=== PATIENT | female | born 1945 | race Caucasian/White ===

== ENCOUNTER → 2016-03-20 | Day surgery (SDC) | payer OTHER ==
[2016-03-12 08:27] VITALS: Ht 158.8 cm; Wt 95.5 kg
[~2016-03-20] VITALS: Ht 158.8 cm; Wt 95.5 kg
[~2016-03-20] MED LIST: ASPEC81 PO; B-CO-25 PO; BROM0.07 OPR; CALC625T13 PO; CELE100C PO; CHOL2000 PO; CLC100 PO; COQ10 PO; CYAN100020 PO; CYM/30 PO; GLC/500 PO; GLCSR25 PO; HYDR25TA4 PO; LIDOCAINE HCL 2% 2 ML VIAL (20MG/ML) ONE; LOSA1TAB PO; LYSI1TAB2 PO; MAGN250T3 PO; METO-551 PO; MIDAZOLAM HCL 1 MG/ML 2ML VIAL ONE; MISCCAP80 PO; MULT-663 PO; ONDANSETRON INJ 2 MG/ML 2 ML VIAL ONE; PANT40TA PO; PEDICHW44 PO; PRED1SUS3 OPL; PROPOFOL IV EMULSION 10 MG/ML 20 ML VIAL IV ONE; PRVC40 PO; SODIUM CHLORIDE 0.9% 500ML 500 ML IV ONE; VITA400C3 PO; VNTHFA/IN INH; ZINC1TAB PO; ZNTT/150 PO
--- NOTE | 2016-03-20 08:56 | Endo History and Physical ---
History & Physical Date of Service: Mar 20, 2016. Chief Complaint: Colon screening Referring Physician: Dr. Markel Rodrigues History of Present Illness 70 yo CF who presents for screening colonoscopy. Past Medical History Diabetes, Asthma, Gastrointestinal Disorder, Reflux, Blood Dyscrasias, High Cholesterol, Sleep Apnea, Heart Disease, Hypertension, Thyroid Disease Past Surgical History Hx Cardiac Surgery: No Hx Internal Defibrillator: No Hx Pacemaker: No Hx Abdominal Surgery: Yes (SPLEENECTOMY, GASTRIC BYPASS, ADRIANE) Hx of Implantable Prosthesis: No Hx Post-Op Nausea and Vomiting: No Hx Cancer Surgery: No Hx Thoracic Surgery: No Hx Orthopedic: Yes (RT/LEFT SHOULDER SX, RT HEEL SPUR SX) Hx Urinary Tract Surgery: No Family History None Social History Smoking Status: Former Smoker Hx Substance Use: No Hx Alcohol Use: Yes (RARELY) Allergies Coded Allergies: Latex (Verified Allergy, Severe, Hives, 03/20/16) Iodinated Contrast Media (Verified Allergy, Intermediate, RASH, 03/12/16) Ciprofloxacin (Verified Allergy, Mild, Urticaria, 03/12/16) Adhesives (Verified Adverse Reaction, Mild, RED;ITCHY SKIN, 03/12/16) Simvastatin (Verified Adverse Reaction, Unknown, Myalgia, 03/12/16) Current Medications Reported Home Medications Medications Dose Route/Sig Max Daily Dose Days Date Category Zinc (Zinc Gluconate) 50 Mg Tab 1 Tab PO QAM 03/12/16 Reported Fiber Tabs (Calcium Polycarbophil) 625 Mg Tab 1 Tab PO QAM 03/12/16 Reported Vitamin D3 (Cholecalciferol) 2,000 Unit Cap 1 Cap PO QAM 90 03/12/16 Reported Citracal Plus (Multiple Minerals W/ Vitamins) 1 Tab Tab 1 Tab PO BID 03/12/16 Reported Vitamin E 400 Iu (Vitamin E) 400 Unit Cap 400 Inter.unit PO QAM 03/12/16 Reported [Coq10] 1 Tab PO QAM 03/12/16 Reported L-Lysine (Lysine) 1,000 Mg Tab 1 Tab PO QAM 03/12/16 Reported Super B Complex Maxi (B-Complex W/ Folic Acid) 1 Tab Tab 1 Tab PO QAM 03/12/16 Reported Probiotic (Probiotic Product) 1 Cap Cap 1 Cap PO QAM 03/12/16 Reported Ventolin Hfa (Albuterol) 200 Puffs/22155 Mcg Aers 2-4 Puffs INH Q6H PRN 03/12/16 Reported Zantac (Ranitidine HCl) 150 Mg Tab 150 Mg PO QAM 03/12/16 Reported Pravastatin Sodium (Pravastatin Sod) 40 Mg Tab 1 Tab PO HS 03/12/16 Reported Protonix (Pantoprazole Sodium) 40 Mg Tab 40 Mg PO QAM 03/12/16 Reported Lopressor (Metoprolol Tartrate) 50 Mg Tab 50 Mg PO QAM 03/12/16 Reported Glucophage (Metformin Hcl) 500 Mg Tab 2 Tab PO BID 03/12/16 Reported Magnesium 250 mg (Magnesium) 1 Tab Tab 1 Tab PO QAM 03/12/16 Reported Cozaar (Losartan Potassium) 25 Mg Tab 25 Mg PO QAM 03/12/16 Reported Hctz (Hydrochlorothiazide) 25 Mg Tab 25 Mg PO QAM 03/12/16 Reported Glipizide ER (Glipizide) 2.5 Mg Tabcr 1 Tab PO QAM 03/12/16 Reported Flintstones Plus Iron (Pediatric Multiple Vitamins W/) 1 Chw Chw 1 Dose PO BID 03/12/16 Reported Cymbalta (Duloxetine HCl) 30 Mg Cap 1 Cap PO QAM 30 03/12/16 Reported Celebrex (Celecoxib) 100 Mg Cap 100 Mg PO BID 03/12/16 Reported Vitamin B12 (Cyanocobalamin) 1,000 Mcg Tab 1 Tab PO QAM 05/04/13 Reported Colace * (Docusate Sodium) 100 Mg Cap 100 Mg PO BID 04/22/10 Reported Ecotrin Or Generic * (Aspirin) 81 Mg Ectab 81 Mg PO HS 04/22/10 Reported Vital Signs Weight (Kilograms): 95.45 Height (Feet): 5 Height (Inches): 2.5 Date Time Temp Pulse Resp B/P Pulse Ox O2 Delivery O2 Flow Rate FiO2 03/20/16 07:58 36.6 52 20 166/73 97 Room Air Physical Exam General Appearance: WD/WN, no apparent distress Respiratory/Chest: Auscultation: breath sounds normal Cardiovascular: Heart Auscultation: RRR Abdomen: Bowel Sounds: normal Inspection & Palpation: soft, non-distended, no tenderness, guarding & rebound Assessment and Plan Assessment: 70 yo CF who presents for screening colonoscopy. Plan: Proceed with colonoscopy.
--- NOTE | 2016-03-20 09:23 | Discharge Instructions ---
Endoscopy Patient Instructions Date / Procedure(s) Performed Mar 20, 2016. Colonoscopy Allergy Information Coded Allergies: Latex (Verified Allergy, Severe, Hives, 03/20/16) Iodinated Contrast Media (Verified Allergy, Intermediate, RASH, 03/12/16) Ciprofloxacin (Verified Allergy, Mild, Urticaria, 03/12/16) Adhesives (Verified Adverse Reaction, Mild, RED;ITCHY SKIN, 03/12/16) Simvastatin (Verified Adverse Reaction, Unknown, Myalgia, 03/12/16) Discharge Date / Findings Mar 20, 2016. Diverticulosis Internal hemorrhoids Medication Instructions Stopped Medication(s): Patient only took her losartan and metoprolol this am. OK to resume all medications today as prescribed. Reported Home Medications Medications Dose Route/Sig Max Daily Dose Days Date Category Zinc (Zinc Gluconate) 50 Mg Tab 1 Tab PO QAM 03/12/16 Reported Fiber Tabs (Calcium Polycarbophil) 625 Mg Tab 1 Tab PO QAM 03/12/16 Reported Vitamin D3 (Cholecalciferol) 2,000 Unit Cap 1 Cap PO QAM 90 03/12/16 Reported Citracal Plus (Multiple Minerals W/ Vitamins) 1 Tab Tab 1 Tab PO BID 03/12/16 Reported Vitamin E 400 Iu (Vitamin E) 400 Unit Cap 400 Inter.unit PO QAM 03/12/16 Reported [Coq10] 1 Tab PO QAM 03/12/16 Reported L-Lysine (Lysine) 1,000 Mg Tab 1 Tab PO QAM 03/12/16 Reported Super B Complex Maxi (B-Complex W/ Folic Acid) 1 Tab Tab 1 Tab PO QAM 03/12/16 Reported Probiotic (Probiotic Product) 1 Cap Cap 1 Cap PO QAM 03/12/16 Reported Ventolin Hfa (Albuterol) 200 Puffs/94465 Mcg Aers 2-4 Puffs INH Q6H PRN 03/12/16 Reported Zantac (Ranitidine HCl) 150 Mg Tab 150 Mg PO QAM 03/12/16 Reported Pravastatin Sodium (Pravastatin Sod) 40 Mg Tab 1 Tab PO HS 03/12/16 Reported Protonix (Pantoprazole Sodium) 40 Mg Tab 40 Mg PO QAM 03/12/16 Reported Lopressor (Metoprolol Tartrate) 50 Mg Tab 50 Mg PO QAM 03/12/16 Reported Glucophage (Metformin Hcl) 500 Mg Tab 2 Tab PO BID 03/12/16 Reported Magnesium 250 mg (Magnesium) 1 Tab Tab 1 Tab PO QAM 03/12/16 Reported Cozaar (Losartan Potassium) 25 Mg Tab 25 Mg PO QAM 03/12/16 Reported Hctz (Hydrochlorothiazide) 25 Mg Tab 25 Mg PO QAM 03/12/16 Reported Glipizide ER (Glipizide) 2.5 Mg Tabcr 1 Tab PO QAM 03/12/16 Reported Flintstones Plus Iron (Pediatric Multiple Vitamins W/) 1 Chw Chw 1 Dose PO BID 03/12/16 Reported Cymbalta (Duloxetine HCl) 30 Mg Cap 1 Cap PO QAM 30 03/12/16 Reported Celebrex (Celecoxib) 100 Mg Cap 100 Mg PO BID 03/12/16 Reported Vitamin B12 (Cyanocobalamin) 1,000 Mcg Tab 1 Tab PO QAM 05/04/13 Reported Colace * (Docusate Sodium) 100 Mg Cap 100 Mg PO BID 04/22/10 Reported Ecotrin Or Generic * (Aspirin) 81 Mg Ectab 81 Mg PO HS 04/22/10 Reported Provider Instructions Activity Restrictions - No exercising or heavy lifting for 24 hours. - Do not drink alcohol the day of the procedure. - Do not drive a car or operate machinery until the day after the procedure. - Do not make any important decisions or sign important papers in 24 hours after the procedure. Following Day: - Return to full activity which may include returning to work/school. Diet Start your diet with liquids and light foods (jello, soup, juice, toast). Then eat your usual diet if not nauseated. Treatment For Common After Affects For mild abdominal pain, bloating, or excessive gas: - Rest - Eat lightly - Lie on right side Follow-Up Information Follow-up with Dr. Markel Rodriuges as scheduled Anesthesia Information What You Should Know You have had a procedure that required some medicine to reduce anxiety and discomfort. This treatment is called moderate sedation. After receiving the treatment, you may be sleepy, but you will be able to breathe on your own. The effects of the treatment may last for several hours. Follow these instructions along with Activity/Diet recommendations noted above: * Do NOT do anything where dizziness or clumsiness would be dangerous. * Rest quietly at home today, then you can be up and about tomorrow. * Have a responsible person stay with you the rest of today. * You may have had an I.V. today. If so, you may take the dressing off later today. Recommendations Call your doctor if: * Trouble breathing * Continuous vomiting for more than 24 hours * Temperature above 101 degrees * Severe abdominal pain or bloating * Pain not relieved by pain medicine ordered * There is increased drainage or redness from any incision * A large amount of rectal bleeding greater than 2-3 tablespoons. (If you had a polyp/s removed or have hemorrhoids, a small amount of blood - from the rectum is to be expected.) * You have any unanswered questions or concerns. IN THE EVENT OF A SERIOUS EMERGENCY, GO TO THE NEAREST EMERGENCY ROOM Your discharge instructions were prepared by provider Curly Louise. Patient Instructions Signature Page Clarissa Mccloud Patient (or Guardian) Signature/Date: I have read and understand the instructions given to me by my caregivers. Caregiver/RN/Doctor Signature/Date: The above-named patient and/or guardian has received patient instructions on this date. + Original Patient Signature Page (only) stays with chart. Please make copy for patient.
--- NOTE | 2016-03-20 09:35 | Anesthesiology Progress Note ---
Anesthesia Post Op Note Date & Time Mar 20, 2016 at 09:35 Vital Signs Pain Intensity: 0 Vital Signs Past 12 Hours Date Time Temp Pulse Resp B/P Pulse Ox O2 Delivery O2 Flow Rate FiO2 03/20/16 07:58 36.6 52 20 166/73 97 Room Air Notes Mental Status: alert / awake / arousable, participated in evaluation Pt Amnestic to Procedure: Yes Nausea / Vomiting: adequately controlled Pain: adequately controlled Airway Patency, RR, SpO2: stable & adequate BP & HR: stable & adequate Hydration State: stable & adequate Anesthetic Complications: no major complications apparent
[2016-03-20 09:56] VITALS: BP 153/72; PULSE 50; O2SAT 98
--- NOTE | 2016-03-20 10:02 | GI REPORT ---
Procedure Date: 03/20/2016 9:00 AM Procedure: Colonoscopy Indications: Screening for colorectal malignant neoplasm Medicines: Monitored Anesthesia Care Complications: No immediate complications. Estimated Blood Loss: Estimated blood loss: none. Procedure: Pre-Anesthesia Assessment: - Prior to the procedure, a History and Physical was performed, and patient medications and allergies were reviewed. The patient's tolerance of previous anesthesia was also reviewed. The risks and benefits of the procedure and the sedation options and risks were discussed with the patient. All questions were answered, and informed consent was obtained. Prior Anticoagulants: The patient has taken aspirin, last dose was 1 day prior to procedure. ASA Grade Assessment: III - A patient with severe systemic disease. After reviewing the risks and benefits, the patient was deemed in satisfactory condition to undergo the procedure. After I obtained informed consent, the scope was passed under direct vision. Throughout the procedure, the patient's blood pressure, pulse, and oxygen saturations were monitored continuously. The scope was introduced through the anus and advanced to the terminal ileum. The colonoscopy was performed without difficulty. The patient tolerated the procedure well. The quality of the bowel preparation was good. The terminal ileum, ileocecal valve, appendiceal orifice, and rectum were photographed. Findings: Multiple small-mouthed diverticula were found in the sigmoid colon. Non-bleeding internal hemorrhoids were found during retroflexion. The hemorrhoids were small. Impression: - Diverticulosis in the sigmoid colon. - Non-bleeding internal hemorrhoids. - No specimens collected. Recommendation: - Resume previous diet. - Continue present medications. - Repeat colonoscopy in 10 years for surveillance. - Return to primary care physician as previously scheduled. Curly Louise, DO 03/20/2016 9:30:32 AM This report has been signed electronically. Note Initiated On: 03/20/2016 9:00 AM
--- NOTE | 2016-03-20 10:02 | Anesthesiology Progress Note ---
Anesthesia Post Op Note Date & Time Mar 20, 2016 at 10:02 Vital Signs Pain Intensity: 0 Vital Signs Past 12 Hours Date Time Temp Pulse Resp B/P Pulse Ox O2 Delivery O2 Flow Rate FiO2 03/20/16 07:58 36.6 52 20 166/73 97 Room Air Notes Mental Status: alert / awake / arousable, participated in evaluation Pt Amnestic to Procedure: Yes Nausea / Vomiting: adequately controlled Pain: adequately controlled Airway Patency, RR, SpO2: stable & adequate BP & HR: stable & adequate Hydration State: stable & adequate Anesthetic Complications: no major complications apparent
== END | disposition home or self-care (01) ==
LOC: C.GI 07:29
PROVIDERS: ATTEND Internal Medicine
DX: Z12.11 Encounter for screening for malignant neoplasm of colon (principal); K57.30 Diverticulosis of large intestine without perforation or abscess without bleeding; K64.8 Other hemorrhoids; G47.33 Obstructive sleep apnea (adult) (pediatric); J45.909 Unspecified asthma, uncomplicated; I25.10 Atherosclerotic heart disease of native coronary artery without angina pectoris; E11.9 Type 2 diabetes mellitus without complications; Z68.37 Body mass index [BMI] 37.0-37.9, adult; E66.9 Obesity, unspecified; I25.2 Old myocardial infarction; I10 Essential (primary) hypertension; Z90.89 Acquired absence of other organs; Z98.84 Bariatric surgery status; Z91.040 Latex allergy status; Z90.49 Acquired absence of other specified parts of digestive tract; Z98.890 Other specified postprocedural states

== ENCOUNTER → 2016-05-13 | Day surgery (SDC) | payer OTHER ==
[2016-04-29 07:50] VITALS: Ht 157.5 cm; Wt 95.5 kg
[~2016-05-13] VITALS: Ht 157.5 cm; Wt 95.5 kg
[~2016-05-13] MED LIST changes: +500ML BSS 0.3ML EPI 1:1000PF IRRIG ONE; +ACETAMINOPHEN 325 MG TAB PO PRN; +AMVISC PLUS 0.8ML SYRINGE INT OCU ONE; +ATROPINE SULFATE 0.1 MG/ML 5ML SYR IV PRN; +AcetaZOLAMIDE 250 MG TAB PO SCH; +BETAXOLOL HCL 0.25% OP SUSP PER DROP CHARGE OPL SCH; +BRIMONIDINE TART 0.2% OP SOLN PER DROP CHARGE ONE; +BSS FLUSH ONE; +ENDOCOAT 0.85ML SYRINGE INT OCU ONE; +EpHEDrine SULFATE INJ 50 MG/ML AMP IV PRN; +EpINEphrine INJ 1MG/ML AMP 1 MG/ML AMP ONE; +FENTANYL CITRATE INJ 50 MCG/1 ML 2 ML VIAL IV PRN; +LACTATED RINGER'S 1000ML 500 ML IV SCH; +LIDOCAINE 4% OP SOLN DROP CHARGE ONE; +LIDOCAINE 4% OP SOLN DROP CHARGE OPL SCH; +LIDOCAINE HCL 1% MPF 2 ML VIAL ONE; -LIDOCAINE HCL 2% 2 ML VIAL (20MG/ML) ONE; +MIX: 4ML BSS 1ML EPI 1:1000 PF INSTIL ONE; +MOXIFLOXACIN OPH SOLN PER DROP CHARGE ONE; +MOXIFLOXACIN OPH SOLN PER DROP CHARGE OPL SCH; +OCUCOAT 1 ML SOLN IO ONE; +ONDANSETRON INJ 2 MG/ML 2 ML VIAL IV PRN; -ONDANSETRON INJ 2 MG/ML 2 ML VIAL ONE; +POVIDONE-IODINE OP SOLN 30 ML BTL ONE; +PROPARACAINE 0.5% OP SOLN PER DROP CHARGE OPL SCH; -PROPOFOL IV EMULSION 10 MG/ML 20 ML VIAL IV ONE; -SODIUM CHLORIDE 0.9% 500ML 500 ML IV ONE; +TOBRAMYCIN/DEXAMETHASONE OPH OINT PER APPLN CHARGE ONE
--- NOTE | 2016-05-13 07:46 | History & Physical Bridge - [place] ---
H&P Re-Evaluation Bridge Note: I have examined the patient, reviewed the History & Physical and in the interval since the performance of the History & Physical I have noted the following changes of clinical significance: No changes noted
[2016-05-13] MEDS: PHENYLEPHRINE HCL 2.5% OP SOLN PER DROP CHARGE OPL SCH ×2 (09:06→09:11)
[2016-05-13] MEDS: TROPICAMIDE 1% OP SOLN PER DROP CHARGE OPL SCH ×2 (09:07→09:12)
[2016-05-13] MEDS: CYCLOPENTOLATE HCL 1% OP SOLN PER DROP CHARGE OPL SCH ×2 (09:08→09:13)
--- NOTE | 2016-05-13 10:17 | Discharge Instructions-SurgCtr ---
Discharge Instructions Date of Service May 13, 2016. Visit Reason for Visit: Cataract Left Eye Discharge Discharge Diagnosis / Problem: lens implant left eye Discharge Goals Goal(s): Improve function Medications Stopped Medications Name(s): Per pt stopped taking metformin 3-12 as instructed. Activity Recommendations Activity Limitations: resume your previous activity Lifting Limitations: no more than 10 pounds Exercise/Sports Limitations: gradually increase as tolerated May Resume Sexual Activity: when tolerated Shower/Bathe: tomorrow Driving or Machine Use: resume 1 day after discharge Anesthesia . Post Anesthesia Instructions: If you have had General Anesthesia or IV Sedation: * Do not drive today. * Resume driving when surgeon permits. * Do not make important decisions or sign legal documents today. * Call surgeon for: 1. Temperature elevations greater than 101 degrees F. 2. Uncontrollable pain. 3. Excessive bleeding. 4. Persistent nausea and vomiting. 5. Medication intolerance (nausea, vomiting or rash). * For nausea and vomiting use only clear liquids such as: tea, soda, bouillon until nausea subsides, then gradually increase diet as tolerated. * If you have any concerns or questions, call your surgeon's office. If physician is unavailable and it is an emergency, call 911 or go to the nearest emergency room. . Instructions / Follow-Up Instructions / Follow-Up ACTIVITY RECOMMENDATIONS: * Light activities. * Mild irritation and blurred vision are common for the first few days. * You may walk outside, read, watch television. * Redness around the white part of the eye is common. MEDICATIONS: Resume previous medications unless instructed otherwise by your surgeon. * Take white Diamox (Acetazolamide) tablet at 1 pm today. Start all eye drops at 1 pm today: * Eye drops (today and tomorrow): Prednisone - one drop in operative eye every 3 hours while awake Tobramycin - one drop in operative eye every 3 hours while awake SPECIAL CARE INSTRUCTIONS: * Tape plastic shield over eye to sleep at night. Call your doctor at with any concerns or problems. FOLLOW UP VISIT: Follow-up with Dr Terrazas at [place] office as scheduled. Diet Recommendations Home Diet: no limitations Procedures Procedures Performed: Left Cataract Phacoemulsification With Intraocular Lens Implant Pending Studies Studies pending at discharge: no Medical Emergencies . Who to Call and When: Medical Emergencies: If at any time you feel your situation is an emergency, please call 911 immediately. . Non-Emergent Contact Non-Emergency issues call your: Dietary Aide Teacher Call Non-Emergent contact if: your pain is not controlled [phone] . . "Provider Documentation" section prepared by Isaac Terrazas.
--- NOTE | 2016-05-13 10:19 | [facility] Operative Report ---
Operative Report Date of Service May 13, 2016. Operative Report 1. PREOPERATIVE DIAGNOSIS: Senile nuclear cataract, left eye. 2. POSTOPERATIVE DIAGNOSIS: Senile nuclear cataract, left eye. 3. PROCEDURE: Phacoemulsification of left cataract with posterior chamber lens implant, type Bausch & Lomb, model iSert, power +23.0 diopters. ANESTHESIA: Local standby. SURGEON: Dr. Terrazas. COMPLICATIONS: None. OPERATING TIME: 10 minutes. 4. OPERATION AND FINDINGS: DESCRIPTION OF PROCEDURE: The left pupil was dilated. The anesthetic was administered using a topical technique. The left eye was prepped and draped. A speculum was placed. A clear corneal incision was formed. The chamber was filled with Amvisc Plus and Endocoat. Epinephrine solution was used. A paracentesis was placed. A capsulorrhexis was performed. The nucleus was hydrodissected. The lens was removed with phacoemulsification. Time was 3.15 seconds. The aspiration unit was used to remove the cortex. The capsule was filled with Amvisc Plus. The lens implant was folded and placed into the capsule. The incision was hydrated. The Amvisc was aspirated. The wound was secure. The chamber was deep. The pupil was round. Brimonidine, TobraDex ointment and Vigamox solution were placed. The speculum was removed. The patient was returned to the Recovery Room in stable condition. I attest to the content of the Intraoperative Record and any orders documented therein. Any exceptions are noted below. The scribe's documentation has been prepared in my presence, under my direction and personally reviewed by me in its entirety. I confirm that the note above accurately reflects all work, treatment, procedures, and medical decision making performed by me. I personally scribed for Isaac Terrazas M.D. ([email or web address]) on 05/13/16 at 10:19. Electronically submitted by Ninoska Carrera ([email or web address]).
[2016-05-13 10:22] VITALS: BP 139/71; PULSE 50; TEMP 36.6; O2SAT 99
--- NOTE | 2016-05-13 10:49 | Anesthesia Progress Nt - [facility] ---
Anesthesia Post Op Note Date & Time May 13, 2016 at 10:49 Vital Signs Pain Intensity: 0 Vital Signs Past 12 Hours Date Time Temp Pulse Resp B/P Pulse Ox O2 Delivery O2 Flow Rate FiO2 05/13/16 10:22 36.6 50 16 139/71 99 Room Air 05/13/16 08:55 36.6 54 18 158/74 54 Room Air Notes Mental Status: alert / awake / arousable, participated in evaluation Pt Amnestic to Procedure: Yes Nausea / Vomiting: adequately controlled Pain: adequately controlled Airway Patency, RR, SpO2: stable & adequate BP & HR: stable & adequate Hydration State: stable & adequate Anesthetic Complications: no major complications apparent
== END | disposition home or self-care (01) ==
LOC: X.SURG 08:28
PROVIDERS: ATTEND Specialist
DX: H25.12 Age-related nuclear cataract, left eye (principal); E11.9 Type 2 diabetes mellitus without complications; I10 Essential (primary) hypertension; Z91.041 Radiographic dye allergy status; Z88.1 Allergy status to other antibiotic agents

== ENCOUNTER → 2016-06-03 | Day surgery (SDC) | payer OTHER ==
[2016-05-28 13:29] VITALS: Ht 157.5 cm; Wt 95.5 kg
[~2016-06-03] VITALS: Ht 157.5 cm; Wt 95.5 kg
[~2016-06-03] MED LIST changes: -BETAXOLOL HCL 0.25% OP SUSP PER DROP CHARGE OPL SCH; +BETAXOLOL HCL 0.25% OP SUSP PER DROP CHARGE OPR SCH; -FENTANYL CITRATE INJ 50 MCG/1 ML 2 ML VIAL IV PRN; -LIDOCAINE 4% OP SOLN DROP CHARGE OPL SCH; +LIDOCAINE 4% OP SOLN DROP CHARGE OPR SCH; -MOXIFLOXACIN OPH SOLN PER DROP CHARGE OPL SCH; +MOXIFLOXACIN OPH SOLN PER DROP CHARGE OPR SCH; +NURSING VERBAL MED ORDER ONE; -ONDANSETRON INJ 2 MG/ML 2 ML VIAL IV PRN; -PROPARACAINE 0.5% OP SOLN PER DROP CHARGE OPL SCH; +PROPARACAINE 0.5% OP SOLN PER DROP CHARGE OPR SCH
[2016-06-03] MEDS: PHENYLEPHRINE HCL 2.5% OP SOLN PER DROP CHARGE OPR SCH ×2 (07:33→07:38)
[2016-06-03] MEDS: TROPICAMIDE 1% OP SOLN PER DROP CHARGE OPR SCH ×2 (07:34→07:39)
[2016-06-03] MEDS: CYCLOPENTOLATE HCL 1% OP SOLN PER DROP CHARGE OPR SCH ×2 (07:35→07:40)
[2016-06-03] MEDS: MOXIFLOXACIN OPH SOLN PER DROP CHARGE OPR SCH ×2 (07:36→07:46)
--- NOTE | 2016-06-03 08:26 | Discharge Instructions-SurgCtr ---
Discharge Instructions Date of Service Jun 03, 2016. Visit Reason for Visit: Cataract Right Eye Discharge Discharge Diagnosis / Problem: lens implant right eye Discharge Goals Goal(s): Improve function Medications Stopped Medications Name(s): METFORMIN STOPPED ON WEDNESDAY ASA 81MG- LAST DOSE YESTERDAY Activity Recommendations Activity Limitations: resume your previous activity Lifting Limitations: no more than 10 pounds Exercise/Sports Limitations: gradually increase as tolerated May Resume Sexual Activity: when tolerated Shower/Bathe: tomorrow Driving or Machine Use: resume 1 day after discharge Anesthesia . Post Anesthesia Instructions: If you have had General Anesthesia or IV Sedation: * Do not drive today. * Resume driving when surgeon permits. * Do not make important decisions or sign legal documents today. * Call surgeon for: 1. Temperature elevations greater than 101 degrees F. 2. Uncontrollable pain. 3. Excessive bleeding. 4. Persistent nausea and vomiting. 5. Medication intolerance (nausea, vomiting or rash). * For nausea and vomiting use only clear liquids such as: tea, soda, bouillon until nausea subsides, then gradually increase diet as tolerated. * If you have any concerns or questions, call your surgeon's office. If physician is unavailable and it is an emergency, call 911 or go to the nearest emergency room. . Instructions / Follow-Up Instructions / Follow-Up ACTIVITY RECOMMENDATIONS: * Light activities. * Mild irritation and blurred vision are common for the first few days. * You may walk outside, read, watch television. * Redness around the white part of the eye is common. MEDICATIONS: Resume previous medications unless instructed otherwise by your surgeon. * Take white Diamox (Acetazolamide) tablet at 1 pm today. Start all eye drops at 1 pm today: * Eye drops (today and tomorrow): Prednisone - one drop in operative eye every 3 hours while awake Tobramycin - one drop in operative eye every 3 hours while awake SPECIAL CARE INSTRUCTIONS: * Tape plastic shield over eye to sleep at night. Call your doctor at with any concerns or problems. FOLLOW UP VISIT: Follow-up with Dr Terrazas at [place] office as scheduled. Diet Recommendations Home Diet: no limitations Procedures Procedures Performed: cataract extraction with lens implant Pending Studies Studies pending at discharge: no Medical Emergencies . Who to Call and When: Medical Emergencies: If at any time you feel your situation is an emergency, please call 911 immediately. . Non-Emergent Contact Non-Emergency issues call your: House Worker Call Non-Emergent contact if: your pain is not controlled [phone] . . "Provider Documentation" section prepared by Isaac Terrazas.
--- NOTE | 2016-06-03 08:27 | [facility] Operative Report ---
Operative Report Date of Service Jun 03, 2016. Operative Report 1. PREOPERATIVE DIAGNOSIS: Senile nuclear cataract, right eye. 2. POSTOPERATIVE DIAGNOSIS: Senile nuclear cataract, right eye. 3. PROCEDURE: Phacoemulsification of right cataract with posterior chamber lens implant, type Bausch & Lomb, model MX60, power +24 diopters. ANESTHESIA: Local standby. SURGEON: Dr. Terrazas. COMPLICATIONS: None. OPERATING TIME: 10 minutes. 4. OPERATION AND FINDINGS: DESCRIPTION OF PROCEDURE: The right pupil was dilated. The anesthetic was administered using a topical technique. The right eye was prepped and draped. A speculum was placed. A clear corneal incision was formed. The chamber was filled with Amvisc Plus and Endocoat. Epinephrine solution was used. A paracentesis was placed. A capsulorrhexis was performed. The nucleus was hydrodissected. The lens was removed with phacoemulsification. Time was 3.53 seconds. The aspiration unit was used to remove the cortex. The capsule was filled with Amvisc Plus. The lens implant was folded and placed into the capsule. The incision was hydrated. The Amvisc was aspirated. The wound was secure. The chamber was deep. The pupil was round. Brimonidine, TobraDex ointment and Vigamox solution were placed. The speculum was removed. The patient was returned to the Recovery Room in stable condition. I attest to the content of the Intraoperative Record and any orders documented therein. Any exceptions are noted below. The scribe's documentation has been prepared in my presence, under my direction and personally reviewed by me in its entirety. I confirm that the note above accurately reflects all work, treatment, procedures, and medical decision making performed by me. I personally scribed for Isaac Terrazas M.D. ([email or web address]) on 06/03/16 at 08:27. Electronically submitted by Ninoska Carrera ([email or web address]).
[2016-06-03 08:31] VITALS: TEMP 36.6
[2016-06-03 08:53] VITALS: BP 140/59; PULSE 49; O2SAT 99
--- NOTE | 2016-06-03 09:03 | Anesthesia Progress Nt - [facility] ---
Anesthesia Post Op Note Date & Time Jun 03, 2016 at 09:02 Vital Signs Pain Intensity: 0 Vital Signs Past 12 Hours Date Time Temp Pulse Resp B/P Pulse Ox O2 Delivery O2 Flow Rate FiO2 06/03/16 08:53 49 16 140/59 99 Room Air 06/03/16 08:31 36.6 50 16 154/72 98 Room Air 06/03/16 07:22 36.7 53 22 141/83 98 Room Air Notes Mental Status: alert / awake / arousable, participated in evaluation Pt Amnestic to Procedure: Yes Nausea / Vomiting: adequately controlled Pain: adequately controlled Airway Patency, RR, SpO2: stable & adequate BP & HR: stable & adequate Hydration State: stable & adequate Anesthetic Complications: no major complications apparent
== END | disposition home or self-care (01) ==
LOC: X.SURG 07:07
PROVIDERS: ATTEND Specialist
DX: H25.11 Age-related nuclear cataract, right eye (principal); I10 Essential (primary) hypertension; Z88.1 Allergy status to other antibiotic agents; Z88.5 Allergy status to narcotic agent; Z88.8 Allergy status to other drugs, medicaments and biological substances; Z91.041 Radiographic dye allergy status

== ENCOUNTER → 2016-06-15 | Outpatient (CLI) | payer OTHER ==
[~2016-06-15] MED LIST changes: -500ML BSS 0.3ML EPI 1:1000PF IRRIG ONE; -ACETAMINOPHEN 325 MG TAB PO PRN; -AMVISC PLUS 0.8ML SYRINGE INT OCU ONE; -ATROPINE SULFATE 0.1 MG/ML 5ML SYR IV PRN; -AcetaZOLAMIDE 250 MG TAB PO SCH; -BETAXOLOL HCL 0.25% OP SUSP PER DROP CHARGE OPR SCH; -BRIMONIDINE TART 0.2% OP SOLN PER DROP CHARGE ONE; -BSS FLUSH ONE; -ENDOCOAT 0.85ML SYRINGE INT OCU ONE; -EpHEDrine SULFATE INJ 50 MG/ML AMP IV PRN; -EpINEphrine INJ 1MG/ML AMP 1 MG/ML AMP ONE; -LACTATED RINGER'S 1000ML 500 ML IV SCH; -LIDOCAINE 4% OP SOLN DROP CHARGE ONE; -LIDOCAINE 4% OP SOLN DROP CHARGE OPR SCH; -LIDOCAINE HCL 1% MPF 2 ML VIAL ONE; -MIDAZOLAM HCL 1 MG/ML 2ML VIAL ONE; -MIX: 4ML BSS 1ML EPI 1:1000 PF INSTIL ONE; -MOXIFLOXACIN OPH SOLN PER DROP CHARGE ONE; -MOXIFLOXACIN OPH SOLN PER DROP CHARGE OPR SCH; -NURSING VERBAL MED ORDER ONE; -OCUCOAT 1 ML SOLN IO ONE; -POVIDONE-IODINE OP SOLN 30 ML BTL ONE; -PROPARACAINE 0.5% OP SOLN PER DROP CHARGE OPR SCH; -TOBRAMYCIN/DEXAMETHASONE OPH OINT PER APPLN CHARGE ONE
[2016-06-15 12:29] LABS: BASO % 0.4 %; BASO ABS # 0.04 K/uL (0-0.2); COMPLETE YES; EOS % 2.3 %; HEMATOCRIT 38.4 % (37-47); IG% 0.3 %; LYMPH % 42.3 %; LYMPH ABS # 4.34 K/uL (1.2-3.4); MEAN CELL VOLUME 92.1 fL (80-100); MEAN CORPUSCULAR HGB CONC 32.6 g/dl (32-36); MEAN PLATELET VOLUME 10.1 fL (7.4-10.4); NEUT % 45.7 %; PLATELET COUNT 336 K/uL (130-400); RED BLOOD COUNT 4.17 M/uL (4.2-5.4); WHITE BLOOD COUNT 10.27 K/uL (4.8-10.8)
[2016-06-15 13:26] LABS: ESTIMATED AVERAGE GLUCOSE 140 mg/dl; HA1C FLAG Normal (Normal)
[2016-06-15 14:48] LABS: ALT/SGPT 25 U/L (12-78); AST/SGOT 20 U/L (15-37); BLOOD UREA NITROGEN 14 mg/dl (7-18); CALCIUM 8.8 mg/dl (8.5-10.1); CARBON DIOXIDE 27 mmol/L (21-32); CHLORIDE 100 mmol/L (98-107); CREATININE 0.69 mg/dl (0.60-1.20); GLUCOSE 136 mg/dl (70-99); SODIUM 136 mmol/L (136-145)
[2016-06-15 14:50] LABS: ALKALINE PHOSPHATASE 59 U/L (45-117)
[2016-06-16 14:32] LABS: HSV TYPE 1 DNA Not Detected (Not Detected); HSV TYPE 1&2 DNA SOURCE Whole Blood; HSV TYPE 2 DNA Not Detected (Not Detected)
== END | disposition home or self-care (01) ==
LOC: C.LABBFT 08:12
PROVIDERS: ATTEND Internal Medicine
DX: L98.499 Non-pressure chronic ulcer of skin of other sites with unspecified severity (principal); C85.80 Other specified types of non-Hodgkin lymphoma, unspecified site; E11.49 Type 2 diabetes mellitus with other diabetic neurological complication

== ENCOUNTER → 2016-07-21 | Outpatient (CLI) | payer OTHER ==
--- NOTE | 2016-07-21 15:22 | MAMMOGRAPHY REPORT ---
BILATERAL DIGITAL SCREENING MAMMOGRAM WITH CAD: 07/21/2016 CLINICAL HISTORY: Routine screening. Patient has no complaints. TECHNIQUE: Bilateral CC and MLO views were obtained. Current study was also evaluated with a Compu ter Aided Detection (CAD) system. COMPARISON: Comparison is made to exams dated: 07/19/2015 mammogram, 07/17/2014 mammogram, 07/13/2013 mammogram, 07/11/2012 mammogram, 07/09/2011 mammogram, and 11/08/2009 mammogram - [facility]. BREAST COMPOSITION: There are scattered areas of fibroglandular density in both breasts. FINDINGS: A focal asymmetry in the anterior 9:00 right breast appears stable on all available prior mammograms dating back to at least 11/07/2007, therefore likely benign. There are a few scattered b enign-appearing microcalcifications in the breasts. No suspicious mass, architectural distortion or cluster of suspicious microcalcifications is seen. IMPRESSION: ACR BI-RADS CATEGORY 1: NEGATIVE There is no mammographic evidence of malignancy. A 1 year screening mammogram is recommended. The p atient will receive written notification of the results. Approximately 10% of breast cancers are not detected with mammography. A negative mammographic repor t should not delay biopsy if a clinically suggestive mass is present. Soraida Thorpe M.D. ay/:07/21/2016 15:04:09 Knockup Worker: Marlin ALCALA(R)(M), [facility] letter sent: Normal 1/2 BI-RADS Code: ACR BI-RADS Category 1: Negative
== END | disposition home or self-care (01) ==
LOC: C.MAMM 09:02
PROVIDERS: ATTEND Internal Medicine
DX: Z12.31 Encounter for screening mammogram for malignant neoplasm of breast (principal)

== ENCOUNTER → 2016-12-21 | Outpatient (CLI) | payer OTHER ==
[2016-12-21 09:42] LABS: BASO % 0.3 %; BASO ABS # 0.03 K/uL (0-0.2); COMPLETE YES; EOS % 1.9 %; HEMATOCRIT 39.4 % (37-47); IG% 0.2 %; LYMPH % 34.4 %; LYMPH ABS # 3.84 K/uL (1.2-3.4); MEAN CELL VOLUME 89.5 fL (80-100); MEAN CORPUSCULAR HEMOGLOBIN 31.6 pg (25-34); MEAN CORPUSCULAR HGB CONC 35.3 g/dl (32-36); MEAN PLATELET VOLUME 9.9 fL (7.4-10.4); NEUT % 54.2 %; PLATELET COUNT 287 K/uL (130-400); WHITE BLOOD COUNT 11.16 K/uL (4.8-10.8)
[2016-12-21 10:11] LABS: ESTIMATED AVERAGE GLUCOSE 137 mg/dl; HA1C FLAG Normal (Normal)
[2016-12-21 10:16] LABS: BLOOD UREA NITROGEN 10 mg/dl (7-18); BUN/CREATININE RATIO 15.2 (10-20); CALCIUM 9.2 mg/dl (8.5-10.1); CARBON DIOXIDE 29 mmol/L (21-32); CHLORIDE 97 mmol/L (98-107); CREATININE 0.68 mg/dl (0.60-1.20); GLUCOSE 109 mg/dl (70-99); POTASSIUM 4.9 mmol/L (3.5-5.1); SODIUM 134 mmol/L (136-145)
[2016-12-21 10:27] LABS: ALKALINE PHOSPHATASE 72 U/L (45-117); ALT/SGPT 27 U/L (12-78); AST/SGOT 22 U/L (15-37); CHOLESTEROL 164 mg/dl (0-200); CHOLESTEROL/HDL RATIO 3.3; HDL CHOLESTEROL 49 mg/dl; LDL CHOLESTEROL CALCULATED 81 mg/dl; THYROID STIMULATING HORMONE 0.877 uIu/ml (0.300-4.500); TRIGLYCERIDES 169 mg/dl (0-150); VERY LOW DENSITY LIPOPROT CALC 34 mg/dl
== END | disposition home or self-care (01) ==
LOC: C.LAB 08:17
PROVIDERS: ATTEND Internal Medicine
DX: E11.49 Type 2 diabetes mellitus with other diabetic neurological complication (principal); M85.80 Other specified disorders of bone density and structure, unspecified site; E78.00 Pure hypercholesterolemia, unspecified; E53.8 Deficiency of other specified B group vitamins

== ENCOUNTER → 2016-12-21 | Outpatient (CLI) | payer OTHER | END | disposition home or self-care (01) | LOC: C.LAB 08:25 → EDSTATUS 12-22 12:55 ==

== ENCOUNTER → 2017-06-29 | Outpatient (CLI) | payer OTHER ==
[~2017-06-29] MED LIST changes: +RANI150T85 PO; -ZNTT/150 PO
[2017-06-29 12:08] LABS: BASO % 0.4 %; BASO ABS # 0.04 K/uL (0-0.2); EOS % 3.4 %; EOS ABS # 0.35 K/uL (0-0.5); HEMOGLOBIN 12.7 g/dL (12.0-16.0); IG# 0.02 K/uL (0.00-0.02); LYMPH % 39.1 %; LYMPH ABS # 4.01 K/uL (1.2-3.4); MEAN CELL VOLUME 89.8 fL (80-100); MEAN CORPUSCULAR HEMOGLOBIN 30.8 pg (25-34); MEAN CORPUSCULAR HGB CONC 34.3 g/dl (32-36); MEAN PLATELET VOLUME 9.9 fL (7.4-10.4); MONO % 9.6 %; MONO ABS # 0.98 K/uL (0.11-0.59); NEUT % 47.3 %; NEUT ABS # 4.85 K/uL (1.4-6.5); PLATELET COUNT 346 K/uL (130-400); RED CELL DISTRIBUTION WIDTH CV 14.3 % (11.5-14.5); RED CELL DISTRIBUTION WIDTH SD 47.2 fL (36.4-46.3); WHITE BLOOD COUNT 10.25 K/uL (4.8-10.8)
[2017-06-29 12:34] LABS: HEMOGLOBIN A1C 6.9 % (4.5-5.6)
[2017-06-29 12:44] LABS: BLOOD UREA NITROGEN 10 mg/dl (7-18); CALCIUM 9.4 mg/dl (8.5-10.1); CARBON DIOXIDE 29 mmol/L (21-32); CREATININE 0.88 mg/dl (0.60-1.20); GLUCOSE 168 mg/dl (70-99); POTASSIUM 4.7 mmol/L (3.5-5.1); SODIUM 132 mmol/L (136-145)
[2017-06-29 12:59] LABS: CREATININE RANDOM URINE 91.6 mg/dl
== END | disposition home or self-care (01) ==
LOC: C.LABBFT 07:49
PROVIDERS: ATTEND Internal Medicine
DX: E11.49 Type 2 diabetes mellitus with other diabetic neurological complication (principal); I10 Essential (primary) hypertension; C85.80 Other specified types of non-Hodgkin lymphoma, unspecified site; E53.8 Deficiency of other specified B group vitamins

== ENCOUNTER → 2017-07-22 | Outpatient (CLI) | payer OTHER ==
--- NOTE | 2017-07-22 14:16 | MAMMOGRAPHY REPORT ---
BILATERAL DIGITAL SCREENING MAMMOGRAM TOMOSYNTHESIS WITH CAD: 07/22/2017 CLINICAL HISTORY: Routine screening. Patient has no complaints. TECHNIQUE: Breast tomosynthesis in addition to standard 2D mammography was performed. Current study was also evaluated with a Computer Aided Detection (CAD) system. COMPARISON: Comparison is made to exams dated: 07/21/2016 mammogram, 07/19/2015 mammogram, 07/17/2014 m ammogram, 07/13/2013 mammogram, 07/11/2012 mammogram, and 07/20/2011 mammogram - [facility]. BREAST COMPOSITION: There are scattered areas of fibroglandular density in both breasts. FINDINGS: No suspicious masses, calcifications, or areas of architectural distortion are noted in ei ther breast. There has been no significant interval change compared to prior exams. Scattered bilater al benign-appearing calcifications are not significantly changed. IMPRESSION: ACR BI-RADS CATEGORY 2: BENIGN There is no mammographic evidence of malignancy. A 1 year screening mammogram is recommended. The pa tient will receive written notification of the results. Approximately 10% of breast cancers are not detected with mammography. A negative mammographic report should not delay biopsy if a clinically suggestive mass is present. Tatiana Jones M.D. /:07/22/2017 13:06:30 Computer Aided Design Technician: Natalia ARAGON)(), [facility] letter sent: Normal 1/2 BI-RADS Code: ACR BI-RADS Category 2: Benign
== END | disposition home or self-care (01) ==
LOC: C.MAMM 09:06
PROVIDERS: ATTEND Internal Medicine
DX: Z12.31 Encounter for screening mammogram for malignant neoplasm of breast (principal)

== ENCOUNTER 2024-09-28 14:30 | Inpatient (IN) ==
[2024-09-28 15:01] LABS: Hematocrit (blood only) 23.9 % (37.0-47.0); Hemoglobin 8.2 g/dl (12.0-16.0); Immature Granulocytes # (auto) 0.06 K/uL (0.01-0.20); Immature Granulocytes % (auto) 0.6 %; Mean Corpuscular Hemoglobin 30.1 pg (25.0-34.0); Mean Corpuscular Volume 87.9 fL (80.0-100.0); Platelet Count 408 K/uL (130-400); RDW Standard Deviation 46.0 fL (36.4-46.3); Red Blood Count 2.72 M/uL (4.20-5.40); White Blood Count 10.44 K/ul (4.8-10.8)
--- NOTE | 2024-09-28 15:05 | XRay Report ---
XR chest 1V not portable CLINICAL HISTORY: Chest pain, nonspecific COMPARISON STUDY: 09/17/2024 FINDINGS: Heart size and pulmonary vasculature are normal. No consolidation or pleural effusion. No p neumothorax. IMPRESSION: No acute findings. ACT 112: Negative or not required by law. Electronically signed by: Reji Diaz M.D. 09/28/2024 3:04 PM
[2024-09-28 15:25] LABS: Alanine Aminotransferase 12 U/L (7-52); Albumin Globulin Ratio 1.6 (0.9-2); Alkaline Phosphatase 62 U/L (34-104); Anion Gap 6 (3-11); Bilirubin,Total 0.3 mg/dl (0.2-1.0); Blood Urea Nitrogen 25 mg/dl (6-23); Calcium 8.5 mg/dl (8.6-10.3); Carbon Dioxide 25 mmol/L (21-32); Chloride 101 mmol/L (98-107); Globulin 2.4 gm/dl (2.5-4.0); Glucose 104 mg/dl (70-99(Fasting)); Potassium 4.7 mmol/L (3.5-5.1); Sodium 132 mmol/L (136-145); Total Protein 6.2 gm/dl (6.0-8.3)
[2024-09-28 15:33] LABS: INR 0.9 (0.9-1.1); Partial Thromboplastin Time 27 Seconds (21-31); Prothrombin Time 9.8 Seconds (9.0-12.0)
--- NOTE | 2024-09-28 16:18 | CT Scan Report ---
Clinical History: Recurrent falls Technique: Axial computed tomography images were obtained of the brain without intravenous contrast. Findings: There is diffuse cerebral atrophy, within expected limits for the patient's age. Areas of decreased attenuation are seen within the periventricular white matter, likely representing chronic small vessel ischemic disease. There is no definite sign of acute or old infarction. No intracranial hemorrhage is evident. No definite mass lesion is seen on this noncontrast examination. There is no midline shift or other form of herniation. No hydrocephalus is seen. There is a posterior scalp hematoma. No fracture is identified. There is fluid and mucosal thickening of the left maxillary sinus. The mastoid air cells appear clear. Impression: 1. Cerebral atrophy and chronic small vessel ischemic disease 2. No sign of intracranial hemorrhage 3. Posterior scalp hematoma 4. Left maxillary sinusitis Electronically signed by Gabriele Lemus 09-28-2024 4:18 PM
--- NOTE | 2024-09-28 17:14 | Emergency Department Note ---
Impression & Plan Syncope, Recurrent falls, ABLA (acute blood loss anemia), Hematoma of occipital region of scalp, Laceration of scalp ED Provider Note NAME: GT LANGLEY AGE: 79 SEX: F : 1945 ARRIVES VIA: Walk-In INFORMANT: Patient, family ED PROVIDER(S): Alex Boone DO CHIEF COMPLAINT: falls HPI: This is a 79-year-old female with the PMHx of CAD, hypertension, hyperlipidemia, DM2, scleroderma, osteoarthritis, osteopenia, Raynaud's disease and pernicious anemia presenting to [facility] for further evaluation of ongoing weakness and falls at home. Patient is accompanied by family members who provide additional history. patient was recently evaluated in the emergency department on 09/17. Patient was evaluated after fall. She had a scalp laceration was repaired with danielle. Patient states that she needs the danielle removed. She states that she has had 4 falls including a fall today. She states that she does have symptoms prior to falling. Patient states that she has tremors in the right side of her body that caused her to fall. Patient denies any seizure-like activity. Patient does report that she lose consciousness with this. Patient notes that she has had some hematochezia that she describes as mostly just on toilet paper. She denies any melena. Patient states that she feels fatigued and weak. Patient states that she intermittently has issues with vision in the left eye but states this is from a prior cataract surgery. They deny fever or chills. No cough or congestion. Denies chest pain or palpitations. No shortness of breath. They deny abdominal pain, nausea and vomiting. No urinary complaints. No recent changes in bowel movements. Patient denies recent changes in medications or OTC supplements. Patient offers no other complaints, today. ADDITIONAL HISTORY OBTAINED: Per HPI Chronic Medical/Social Conditions Affecting Care: Per HPI PAST MEDICAL HISTORY: See Below PAST SURGICAL HISTORY: See Below FAMILY HISTORY: See Below SOCIAL HISTORY: See Below HOME MEDICATIONS: See Below ALLERGIES: See Below VITALS: See Below PHYSICAL EXAMINATION: GENERAL: Sitting up in bed, alert, well appearing, well nourished, no distress, non-toxic HEAD: posterior scalp contusion with hematoma. Reinjury to superior aspect. Minimal bleeding present. [address] EYE EXAM: normal conjunctiva. EOMI. OS 5 mm OD 4 mm. Both reactive. Prior cataract surgery OS. OROPHARYNX: no exudate, no erythema, lips, buccal mucosa, and tongue normal and mucous membranes are moist NECK: supple, no nuchal rigidity, no adenopathy, non-tender LUNGS: Clear to auscultation. Normal chest wall mechanics HEART: no murmurs, regular rate, regular rhythm ABDOMEN: abdomen soft, tenderness in epigastrium, normo-active bowel sounds, no masses, no rebound or guarding. BACK: Back is symmetrical on inspection and there is no deformity, no midline tenderness, no CVA tenderness. SKIN: no rashes and no bruising UPPER EXTREMITIES: upper extremities are grossly normal. LOWER EXTREMITIES: No pitting edema. NEURO EXAM: Normal sensorium, cranial nerves II-XII grossly intact, normal speech, no gross weakness of arms, no gross weakness of legs. No drift. Finger to nose intact. Gross sensation intact. MEDICAL DECISION MAKING: Differential diagnoses includes but not limited to head injury, ICH, SDH, scalp hematoma, ACS, dysrhythmia, stroke, head injury, anemia, AAA, infectious etiology, vasovagal, situational, electrolyte derangements, dehydration, orthostasis, GI bleed, neurocognitive decline, weakness, ambulatory dysfunction In summary, this is a 79 year old female who presented with frequent falls. Differential as above. Nursing notes and pertinent past medical records reviewed. Vital signs reviewed and the patient is hypertensive but otherwise afebrile hemodynamically stable. History and presentation revealed recurrent falls and ambulatory dysfunction. Question syncopal episodes. Physical examination revealed neurovascularly intact exam. Evidence of head trauma. As a result of my initial evaluation, patient is having syncopal episodes and significant ambulatory dysfunction with frequent falls. Has had some bright red blood per rectum but history of hemorrhoids and this is minimal. Typically only on the toilet paper. Does have new head trauma on top of prior laceration/contusion fixed with danielle. Will repeat CT head today. Plan for CT of the abdomen giving epigastric tenderness and concerns for possible GI bleed. Diagnostics interpreted by me include EKG and cardiac monitoring as listed below: -Cardiac Monitoring: An order was placed for continuous cardiac monitoring. The monitor shows a rate of 60-80 with regular rhythm. -ECG: EKG independently interpreted reveals normal sinus rhythm with a right bundle branch block at a rate of [address] segment changes to suggest STEMI. Poor baseline on this EKG. Patient completed laboratory studies and imaging. Results independently interpreted by me are ABLA. She has lost approximately 3 g of hemoglobin within the last 10 days. Platelets have increased. Patient has mild hyponatremia that is not new. Minimal troponin leak at 14.8. CXR independently interpreted by me reveals no evidence of focal consolidation to suggest pna. No large pneumothorax or pleural effusion. CTH independently interpreted by me reveals no evidence of ICH. No significant hydrocephalus. No major skull fractures. CTH does not demonstrate findings to suggest an etiology of the patient's symptoms or presentation, today. I am concerned that the patient has some sort of acute blood loss anemia. Not all cell counts are downtrending. It seems to be isolated to the hemoglobin. Does report some rectal bleeding. Do feel this is likely from external hemorrhoids that the patient reports. She is having some epigastric tenderness on exam. Will dose with Protonix as well as Maalox for relief. Will check a CT abdomen/pelvis. No contrast given her significant allergy. Do feel the patient should be observed in the the hospital with telemetry and close follow-up on her hemoglobin. If she continues to have downtrending hemoglobin, the patient may benefit from further imaging and possible procedures with gastroenterology for possible GI bleed. Will keep patient on PPI twice daily. Patient unsafe to return home given ambulatory dysfunction and frequent falls. Will recommend close evaluation with telemetry. Ultimately, the decision was made to admit the patient for Frequent falls and ambulatory dysfunction with concerns for safety at home. Some concern for possible acute blood loss anemia in the setting of a GI bleed. I discussed the case with the hospitalist service via [employer] and they are agreeable to admit the patient to their services. Based on the above, including the patient's age, coexisting illnesses, labs, imaging, and exam findings the decision to treat as an inpatient. I discussed the patient with the hospitalist team who recommended admission to their services. They received the medications, treatments, interventions indicated above and their condition []. I discussed my findings with the patient and their family and they understand and agree with the treatment plan. All patient / family questions were answered to their satisfaction. Consults/Care Managements Discussions: Per [facility] ER treatment provided: See above Procedures: Verbal consent obtained for staple removal. Reviewed prior records. Patient had a posterior scalp laceration that was repaired with 8 danielle. This was on 09/17. Patient needs these removed. She has suffered repeat injuries. Has a small laceration present. This is superior aspect. Site was cleansed with saline and alcohol. 8 danielle were removed in their entirety.. Patient has again a small laceration here. I do not feel it is worth repair. The patient is agreeable to this. Bacitracin applied. Patient tolerated the procedure well. Critical Care: None The chart was completed utilizing [employer] Speech voice recognition software. Grammatical errors, random word insertions, pronoun errors, and incomplete sentences are an occasional consequence of this system due to software limitations, ambient noise, and hardware issues. Any formal questions or concerns about the content, text, or information contained within the body of this dictation should be directly addressed to the physician for clarification. Past Med/Surg History Problem List (Updated 10/02/24 @ 06:03 by Alex Boone DO) Laceration of scalp (Acute) Hematoma of occipital region of scalp (Acute) ABLA (acute blood loss anemia) (Acute) Syncope (Acute) Fainting Transient alteration of awareness Stenosis of left internal carotid artery Recurrent UTI Acquired asplenia Acute blood loss anemia Recurrent falls (Acute) Sensorineural hearing loss, bilateral Limited scleroderma Obesity Personal history of VT (myocardial infarction) CAD (coronary artery disease) VT 1998 - Per cardio, "cardiac catheterization at [facility], which revealed normal coronary anatomy, however there was a distal diagonal not visualized. 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 Nontoxic multinodular goiter Osteoarthritis, multiple sites Osteopenia Pernicious anemia Raynaud disease Sleep apnea Urge incontinence of urine Vitamin B12 deficiency Medical History Closed fracture of nasal septum Mechanical fall (trip) in parking lot (10/2021) Fracture of nasal bone with routine healing History of ITP s/p splenectomy Dysphagia History of diverticulosis Difficulty breathing With humidity (reason for inhaler per pt) Denies asthma/COPD hx Hx of sleep apnea No device Hypertension Hyperlipidemia GERD (gastroesophageal reflux disease) Myocardial Infarction 1998 Hyponatremia Nocturia Renal neoplasm Surgical History History of temporal artery biopsy (09/23/22) Left Temporal Artery Biopsy(Left) - Reji St DO, FACS History of sinus surgery History of esophagogastroduodenoscopy (EGD) History of colonoscopy History of tooth extraction History of tonsillectomy and adenoidectomy History of cardiac cath 1998 ([facility]) > no stents History of cataract surgery R/L History of splenectomy Removed age 18 (r/t bleeding issues) History of cholecystectomy History of gastric surgery [id number] (2004) Family History Mother Diabetes Coronary heart disease Hypertension Sister Lymphoma in 2021 secondary to leukemia conversion Unknown Bladder cancer Hypertension Grandmother (Maternal) Diabetes Father Unknown family medical history Denies family history of Ovarian cancer Prostate cancer Breast cancer Colorectal cancer Social History Smoking Status: Unknown if ever smoked Tobacco Type: Cigarettes Age Started Using Tobacco: 42; Age Quit Using Tobacco: 44; packs per day: 0.5; Second Hand Exposure: Yes (HX); Do You Dip or Chew Tobacco: No; Hx Alcohol Use: No Hx Substance Use: No Preferred Language: Korean Communication Ability: Effective Visual Impairment: No Limitations Hearing Ability: Normal Egg Processor Required: No Beliefs That Will Affect Care: None marital status: Current Living Situation: Alone current occupational status: retired How many Children do You have: 1 Feels Safe at Home: Yes Childhood Exposure to Second-Hand Smoke: Yes Diet: diabetic caffeine: Yes during the past year weight has: increased > 10 lbs Dental Care, Regularly: No Physical Activity Frequency: 1-2 Times per Week Seatbelt Use: always Sunscreen Use: No Assistive Devices: Other Allergies Allergies Allergy/AdvReac Type Severity Reaction Status Date / Time latex Allergy Severe Hives Verified 09/28/24 18:13 Iodinated Contrast Media Allergy Intermediate Rash Verified 09/28/24 18:13 ciprofloxacin Allergy Mild Urticaria Verified 09/28/24 18:13 canagliflozin [From Invokana] Allergy Unknown Unknown Verified 09/28/24 18:13 simvastatin AdvReac Intermediate Myalgia Verified 09/28/24 18:13 adhesive AdvReac Mild Redness, Verified 09/28/24 18:13 itchy skin Home Meds Home Medications Medication Instructions Recorded Confirmed acetaminophen 650 mg 650 mg PO BID PRN Pain 01/06/19 09/28/24 tablet,extended release cyanocobalamin (vitamin B-12) 1,000 mcg sublingual QAM 01/06/19 09/28/24 1,000 mcg sublingual tablet lysine 1,000 mg tablet 1,000 mg PO QAM 01/06/19 09/28/24 zinc gluconate 50 mg tablet 50 mg PO QAM 01/06/19 09/28/24 aspirin 81 mg tablet,delayed 81 mg PO HS 07/31/19 09/28/24 release diphenhydramine HCl 25 mg tablet 25 mg PO DAILY PRN Itching 03/24/21 09/28/24 (Benadryl Allergy) Nervive Nerve Pain Relief 1 tab PO QAM 05/07/21 09/28/24 coenzyme Q10 75 mg capsule (Ultra 75 mg PO QAM 09/15/22 09/28/24 CoQ10) pediatric multivitamin no.76 1 tab PO BID 09/16/22 09/28/24 (Flintstones Complete chewable tablet) mupirocin 2 % topical ointment 1 applic topical BID PRN DRYNESS 09/23/22 09/28/24 (Centany) polyethylene glycol 3350 17 17 g PO DAILY PRN Constipation 09/23/22 09/28/24 gram/dose oral powder (Miralax) calcium carbonate 600 mg PO DAILY 09/28/24 09/28/24 duloxetine 30 mg capsule,delayed 30 mg PO QAM 09/28/24 09/28/24 release duloxetine 60 mg capsule,delayed 60 mg PO QAM 09/28/24 09/28/24 release hydrochlorothiazide 12.5 mg tablet 12.5 mg PO QAM 09/28/24 09/28/24 magnesium 250 mg tablet 250 mg PO DAILY 09/28/24 09/28/24 Previous Rx's Medication Instructions Recorded blood-glucose meter #1 ea 08/05/18 valacyclovir 1 gram tablet See Rx Instructions PO .COMPLEX 05/21/21 #30 tabs nitroglycerin 0.4 mg sublingual 0.4 mg sublingual Q5M PRN chest 10/07/23 tablet pain #25 tabs blood sugar diagnostic (OneTouch #100 strips 10/15/23 Ultra Test strips) betamethasone dipropionate 0.05 % 1 applic topical BID PRN itching 11/18/23 topical ointment #45 grams trospium 20 mg tablet 20 mg PO BID #180 tabs 02/21/24 gabapentin 300 mg capsule 300 mg PO TID #270 caps 02/28/24 pilocarpine HCl 5 mg tablet 5 mg PO TID #270 tabs 03/02/24 (Salagen (pilocarpine)) nystatin 100,000 unit/gram topical 1 applic topical TID PRN 04/10/24 powder intertrigo #60 grams linaclotide 290 mcg capsule 290 mcg PO QAM #90 caps 06/01/24 (Linzess) alendronate 70 mg tablet (Fosamax) 70 mg PO DIRECTED #12 tabs 06/29/24 losartan 50 mg tablet 50 mg PO QAM #90 tabs 06/29/24 nifedipine 60 mg tablet,extended 60 mg PO DAILY #90 tabs 06/29/24 release metoprolol tartrate 25 mg tablet 25 mg PO DAILY #90 tabs 07/03/24 dulaglutide 1.5 mg/0.5 mL 1.5 mg (0.5 mL) subcut WEEKLY #2 mL 07/28/24 subcutaneous pen injector (Trulicity) albuterol sulfate 90 mcg/actuation 2 puff inhalation QID PRN 08/21/24 aerosol inhaler (Ventolin HFA) shortness of breath or wheezing #18 grams rosuvastatin 5 mg tablet (Crestor) 5 mg PO QPM #90 tabs 08/21/24 celecoxib 100 mg capsule (Celebrex) 100 mg PO BID #180 caps 09/25/24 metformin 500 mg tablet,extended 500 mg PO BID #360 tabs 09/25/24 release 24 hr pantoprazole 40 mg tablet,delayed 40 mg PO QAM #90 tabs 09/25/24 release (Protonix) Results & Data (ED) Vital Signs Vital Signs - 24 hr 09/28/24 14:54 09/28/24 16:19 09/28/24 16:19 Temperature 36.7 C Temperature Source Temporal Artery Scan Pulse Rate 70 Pulse Rate [Apical] 69 Respiratory Rate 22 18 Respiratory Effort / Characteristics Non-Labored Spontaneous Non-Labored Spontaneous Respiratory Depth Normal Normal Respiratory Pattern Regular Regular Blood Pressure 102/68 Blood Pressure [Right Arm] 182/79 H Blood Pressure Mean 79 Blood Pressure Mean [Right Arm] 113 Pulse Oximetry 92 99 98 Oxygen Delivery Method Room Air Room Air Room Air Sepsis Recent Fever Within 48 Hours No Sepsis New/Unexplained Change in Mental Status No Sepsis Action Taken by Nursing No Action Required 09/28/24 16:19 09/28/24 16:20 09/28/24 16:30 Temperature Temperature Source Pulse Rate 62 65 Pulse Rate [Apical] Respiratory Rate 24 Respiratory Effort / Characteristics Respiratory Depth Respiratory Pattern Blood Pressure 188/77 H Blood Pressure [Right Arm] Blood Pressure Mean 117 Blood Pressure Mean [Right Arm] Pulse Oximetry 98 99 Oxygen Delivery Method Room Air Room Air Sepsis Recent Fever Within 48 Hours Sepsis New/Unexplained Change in Mental Status Sepsis Action Taken by Nursing 09/28/24 17:00 09/28/24 17:30 Temperature Temperature Source Pulse Rate 68 68 Pulse Rate [Apical] Respiratory Rate 16 20 Respiratory Effort / Characteristics Respiratory Depth Respiratory Pattern Blood Pressure 198/85 H 135/90 Blood Pressure [Right Arm] Blood Pressure Mean 112 105 Blood Pressure Mean [Right Arm] Pulse Oximetry 100 99 Oxygen Delivery Method Room Air Room Air Sepsis Recent Fever Within 48 Hours Sepsis New/Unexplained Change in Mental Status Sepsis Action Taken by Nursing Laboratory Data 10/01/24 06:03 10/01/24 06:03 Lab Results 09/28/24 09/28/24 Range/Units 14:45 18:03 WBC 10.44 (4.8-10.8) K/ul RBC 2.72 L (4.20-5.40) M/uL Hgb 8.2 L (12.0-16.0) g/dl Hct 23.9 L (37.0-47.0) % MCV 87.9 (80.0-100.0) fL MCH 30.1 (25.0-34.0) pg MCHC 34.3 (32.0-36.0) g/dL RDW Std Deviation 46.0 (36.4-46.3) fL RDW Coeff of Charles 14.5 (11.5-14.5) % Plt Count 408 H (130-400) K/uL MPV 8.7 L (9.4-12.4) fL Immature Gran % (Auto) 0.6 % Neut % (Auto) 67.0 % Lymph % (Auto) 21.3 % [place] % (Auto) 9.1 % Eos % (Auto) 1.6 % Baso % (Auto) 0.4 % Neut # (Auto) 7.00 H (1.40-6.50) K/uL Lymph # (Auto) 2.22 (1.20-3.40) K/uL [place] # (Auto) 0.95 H (0.11-0.59) K/uL Eos # (Auto) 0.17 (0.00-0.50) K/uL Baso # (Auto) 0.04 (0.00-0.20) K/uL Immature Gran # (Auto) 0.06 (0.01-0.20) K/uL PT 9.8 (9.0-12.0) Seconds INR 0.9 (0.9-1.1) APTT 27 (21-31) Seconds PTT Ratio 1.0 Sodium 132 L (136-145) mmol/L Potassium 4.7 (3.5-5.1) mmol/L Chloride 101 (98-107) mmol/L Carbon Dioxide 25 (21-32) mmol/L Anion Gap 6 (3-11) BUN 25 H (6-23) mg/dl Creatinine 0.94 (0.6-1.2) mg/dl Est Cr Clr Drug Dosing Not Reportable eGFR 61.72 BUN/Creatinine Ratio 26.6 H (10-20) Glucose 104 H (70-99(Fasting)) mg/dl Calcium 8.5 L (8.6-10.3) mg/dl Total Bilirubin 0.3 (0.2-1.0) mg/dl AST 20 (13-39) U/L ALT 12 (7-52) U/L Alkaline Phosphatase 62 (34-104) U/L Total Creatine Kinase 73 (26-192) U/L Troponin I High Sens 14.8 H (0-14) pg/ml Total Protein 6.2 (6.0-8.3) gm/dl Albumin 3.8 (3.4-5.0) gm/dl Globulin 2.4 L (2.5-4.0) gm/dl Albumin/Globulin Ratio 1.6 (0.9-2) Urine Color Yellow Urine Appearance Cloudy A (Clear) Urine pH 8.0 H (4.5-7.5) Ur Specific [place] 1.005 (1.000-1.030) Urine Protein Trace H (Negative) Urine Glucose (UA) Negative (Negative) Urine Ketones Negative (Negative) Urine Blood 1+ H (Negative) Urine Nitrite Negative (Negative) Urine Bilirubin Negative (Negative) Urine Urobilinogen Negative (Negative) Ur Leukocyte Esterase 3+ H (Negative) Urine WBC (Auto) >50 H (0-5) /hpf Urine RBC (Auto) 3-5 H (0-2) /hpf U Hyaline Cast (Auto) 3-5 H (0-2) /lpf U Epithel Cells (Auto) 6-10 H (0-2) /hpf Urine Bacteria (Auto) 4+ H (None Seen) Hyaline Casts Present A (None Presnt) /lpf Urine Comment Administered Medications Discontinued Medications Acetaminophen (Acetaminophen 325 Mg Tab) 650 mg PO Q6H PRN PRN Reason: Pain Stop: 10/28/24 21:31 Last Admin: 10/01/24 04:34 Dose: 650 mg Documented By: Admin: 09/30/24 08:40 Dose: 650 mg Documented By: MERLY Hydrocodone Bitart/Acetaminophen (Hydrocodone/Acetamophen 5/325mg Tab) 1 tab PO Q6H PRN PRN Reason: Pain Stop: 10/15/24 11:17 Last Admin: 10/01/24 11:58 Dose: 1 tab Documented By: MERLY Al Hydrox/Mg Hydrox/Simethicone (Aluminum/Magnesium/Simeth (Maalox Max) 30 Ml Udc) 30 ml PO NOW STA Stop: 09/28/24 17:06 Last Admin: 09/28/24 17:32 Dose: 30 ml Documented By: GREGG Apixaban (Apixaban 5 Mg Tablet) 10 mg PO BID ROXANA Stop: 10/07/24 21:01 Last Admin: 10/01/24 11:58 Dose: 10 mg Documented By: MERLY Aspirin (Aspirin 81 Mg Ectab) 81 mg PO QAM ROXANA Stop: 10/29/24 11:44 Last Admin: 10/01/24 08:44 Dose: 81 mg Documented By: Admin: 09/30/24 08:36 Dose: 81 mg Documented By: Admin: 09/29/24 13:32 Dose: 81 mg Documented By: DAVID Cephalexin HCl (Cephalexin 500 Mg Cap) 500 mg PO BID [facility]; Protocol Stop: 10/05/24 20:59 Last Admin: 10/01/24 08:43 Dose: 500 mg Documented By: Admin: 09/30/24 20:36 Dose: 500 mg Documented By: ANTONIO Cyanocobalamin (Cyanocobalamin (B-12) 500 Mcg Tablet) [facility] Stop: 10/29/24 08:59 Last Admin: 10/01/24 08:43 Dose: 1,000 mcg Documented By: Admin: 09/30/24 08:36 Dose: 1,000 mcg Documented By: Admin: 09/29/24 09:07 Dose: 1,000 mcg Documented By: DAVID Diphenhydramine HCl (Diphenhydramine Capsule 25 Mg Cap) 50 mg PO ONE ONE Stop: 09/30/24 06:01 Last Admin: 09/30/24 05:36 Dose: 50 mg Documented By: ANTONIO Duloxetine HCl (Duloxetine Hcl 30 Mg Cap) [facility] Stop: 10/29/24 08:59 Last Admin: 10/01/24 08:43 Dose: 30 mg Documented By: Admin: 09/30/24 08:35 Dose: 30 mg Documented By: Admin: 09/29/24 09:06 Dose: 30 mg Documented By: DAVID Duloxetine HCl (Duloxetine Hcl 60 Mg Cap) [facility] Stop: 10/29/24 08:59 Last Admin: 10/01/24 08:44 Dose: 60 mg Documented By: Admin: 09/30/24 08:36 Dose: 60 mg Documented By: Admin: 09/29/24 09:10 Dose: 60 mg Documented By: DAVID Famotidine (Famotidine 20 Mg Tab) 20 mg PO ONE ONE Stop: 09/30/24 06:01 Last Admin: 09/30/24 05:36 Dose: 20 mg Documented By: ANTONIO Folic Acid (Folic Acid 1 Mg Tab) [facility] Stop: 10/30/24 08:59 Last Admin: 10/01/24 08:43 Dose: 1 mg Documented By: Admin: 09/30/24 09:42 Dose: 1 mg Documented By: MERLY Gabapentin (Gabapentin 300 Mg Cap) 300 mg PO TID ROXANA Stop: 10/28/24 21:18 Last Admin: 10/01/24 08:44 Dose: 300 mg Documented By: Admin: 09/30/24 20:38 Dose: 300 mg Documented By: Admin: 09/30/24 14:39 Dose: 300 mg Documented By: Admin: 09/30/24 08:36 Dose: 300 mg Documented By: Admin: 09/29/24 20:40 Dose: 300 mg Documented By: Admin: 09/29/24 13:53 Dose: 300 mg Documented By: Admin: 09/29/24 09:07 Dose: 300 mg Documented By: Admin: 09/28/24 23:19 Dose: 300 mg Documented By: ANTONIO Heparin Sodium (Porcine) (Heparin Sod (Porcine) 1000 Unit/Ml) 5,000 units IV NOW ONE Stop: 09/30/24 09:41 Last Admin: 09/30/24 09:43 Dose: 5,000 units Documented By: MERLY Co-signed By: CRAIG Heparin Sodium/Dextrose (Heparin Iv Adult Wt-Based Standard W/ Initial Bolus Protocol) 1 each IV Q15M [facility]; Protocol Stop: 09/30/24 09:46 Last Admin: 09/30/24 10:19 Dose: Not Given Documented By: Admin: 09/30/24 10:18 Dose: Not Given Documented By: MERLY Hydrocortisone (Hydrocortisone Hc 2.5% Crm 30gm Tube) 1 appln EXT BID ROXANA Stop: 10/30/24 11:14 Last Admin: 10/01/24 08:44 Dose: 1 appln Documented By: Admin: 09/30/24 20:37 Dose: 1 appln Documented By: Admin: 09/30/24 11:44 Dose: 1 appln Documented By: MERLY Pantoprazole Sodium (Protonix) 40 mg in 10 mls @ 5 mls/min IV NOW ONE Stop: 09/28/24 17:06 Last Admin: 09/28/24 17:32 Dose: 5 mls/min Documented By: GREGG Ceftriaxone Sodium (Rocephin) 2,000 mg in 50 mls @ 100 mls/hr IV NOW STA Stop: 09/28/24 20:54 Last Infusion: 09/28/24 23:55 Dose: Infused Documented By: Admin: 09/28/24 23:27 Dose: 100 mls/hr Documented By: ANTONIO Pantoprazole Sodium (Protonix) 40 mg in 10 mls @ 5 mls/min IV BID ROXANA Stop: 10/28/24 21:18 Last Admin: 09/29/24 20:38 Dose: 5 mls/min Documented By: Admin: 09/29/24 09:10 Dose: 5 mls/min Documented By: Admin: 09/28/24 23:19 Dose: 5 mls/min Documented By: ANTONIO Ceftriaxone Sodium (Rocephin) 2,000 mg in 50 mls @ 100 mls/hr IV Q24H [facility] Stop: 10/04/24 21:59 Last Infusion: 09/29/24 21:45 Dose: Infused Documented By: Admin: 09/29/24 21:16 Dose: 100 mls/hr Documented By: ANTONIO Heparin Sodium/Dextrose (Heparin 32479 Unit/500 Ml D5w) 25,000 units in 500 mls @ 21 mls/hr IV .[id number] [facility]; Protocol Stop: 10/30/24 09:14 Last Titration: 10/01/24 10:33 Dose: Infused Documented By: MERLY Co-signed By: RAJAT Admin: 10/01/24 08:52 Dose: 1,050 units/hr, 21 mls/hr Documented By: MERLY Co-signed By: RAJAT Titration: 10/01/24 08:52 Dose: Infused Documented By: MERLY Co-signed By: RAJAT Titration: 10/01/24 00:50 Dose: 1,050 units/hr, 21 mls/hr Documented By: ANTONIO Co-signed By: ISIDORO Titration: 09/30/24 17:59 Dose: 1,050 units/hr, 21 mls/hr Documented By: MERLY Co-signed By: CRAIG Admin: 09/30/24 09:43 Dose: 1,100 units/hr, 22 mls/hr Documented By: MERLY Co-signed By: CRAIG Iron Sucrose 300 mg/ Sodium (Chloride) 265 mls @ 176.667 mls/hr IV TODAY@0800 ONE Stop: 10/01/24 09:29 Last Infusion: 10/01/24 10:33 Dose: Infused Documented By: Infusion: 10/01/24 10:32 Dose: Infused Documented By: Admin: 10/01/24 08:42 Dose: 176.7 mls/hr Documented By: MERLY Prothrombin Complex Concent ( (Human) 2,000 units/ Syringe) 80 mls @ 10 mls/min IV ONE ONE; Protocol Stop: 10/01/24 14:37 Last Admin: 10/01/24 14:19 Dose: 10 mls/min Documented By: MERLY Insulin Aspart (Insulin Aspart Per Unit Charge) 0 units SC ACHS ROXANA Stop: 10/28/24 21:18 Last Admin: 10/01/24 11:44 Dose: Not Given Documented By: Admin: 10/01/24 07:59 Dose: Not Given Documented By: Admin: 09/30/24 20:38 Dose: 1 units Documented By: ANTONIO Co-signed By: NANO Admin: 09/30/24 16:38 Dose: 1 units Documented By: MERLY Co-signed By: CRAIG Admin: 09/30/24 11:40 Dose: 3 units Documented By: MERLY Co-signed By: CRAIG Admin: 09/30/24 08:19 Dose: 1 units Documented By: MERLY Co-signed By: CRAIG Admin: 09/29/24 20:42 Dose: 3 units Documented By: ANTONIO Co-signed By: ISIDORO Admin: 09/29/24 17:34 Dose: 1 units Documented By: DAVID Co-signed By: NATALIA Admin: 09/29/24 11:36 Dose: Not Given Documented By: Admin: 09/29/24 09:16 Dose: Not Given Documented By: Admin: 09/28/24 23:16 Dose: Not Given Documented By: ANTONIO Ioversol (Optiray 320 125ml) 120 ml IV ONCE ONE Stop: 09/30/24 07:16 Last Admin: 09/30/24 07:16 Dose: 120 ml Documented By: PATRICK Levetiracetam (Levetiracetam 500 Mg/5 Ml Vial) 500 mg IV ONE ONE Stop: 10/01/24 14:31 Last Admin: 10/01/24 14:37 Dose: 500 mg Documented By: MERLY Linaclotide (Linaclotide 145 Mcg Capsule) 290 mcg PO QAM ROXANA Stop: 10/29/24 08:59 Last Admin: 10/01/24 08:43 Dose: 290 mcg Documented By: Admin: 09/30/24 08:35 Dose: 290 mcg Documented By: Admin: 09/29/24 09:09 Dose: 290 mcg Documented By: DAVID Losartan Potassium (Losartan Potassium 50 Mg Tab) 50 mg PO QAM ROXANA Stop: 10/29/24 08:59 Last Admin: 10/01/24 08:44 Dose: 50 mg Documented By: Admin: 09/30/24 08:36 Dose: 50 mg Documented By: Admin: 09/29/24 09:09 Dose: 50 mg Documented By: DAVID Metoprolol Tartrate (Metoprolol Tartrate 25 Mg Tab) 25 mg PO DAILY ROXANA Stop: 10/29/24 08:59 Last Admin: 10/01/24 08:44 Dose: 25 mg Documented By: Admin: 09/30/24 08:36 Dose: 25 mg Documented By: Admin: 09/29/24 09:07 Dose: 25 mg Documented By: DAVID Nifedipine (Nifedipine Extended Rel 30 Mg Tabcr) 60 mg PO DAILY ROXANA Stop: 10/29/24 08:59 Last Admin: 10/01/24 08:43 Dose: 60 mg Documented By: Admin: 09/30/24 08:35 Dose: 60 mg Documented By: Admin: 09/29/24 09:06 Dose: 60 mg Documented By: DAVID Pantoprazole Sodium (Pantoprazole 40 Mg Tab) 40 mg PO QAM ROXANA Stop: 10/30/24 08:59 Last Admin: 10/01/24 08:43 Dose: 40 mg Documented By: Admin: 09/30/24 09:42 Dose: 40 mg Documented By: MERLY Pilocarpine HCl (Pilocarpine Hcl 5 Mg Tablet) 5 mg PO TID ROXANA Stop: 10/28/24 21:18 Last Admin: 10/01/24 08:43 Dose: 5 mg Documented By: Admin: 09/30/24 20:37 Dose: 5 mg Documented By: Admin: 09/30/24 14:39 Dose: 5 mg Documented By: Admin: 09/30/24 08:36 Dose: 5 mg Documented By: Admin: 09/29/24 20:39 Dose: 5 mg Documented By: Admin: 09/29/24 13:31 Dose: 5 mg Documented By: Admin: 09/29/24 09:09 Dose: 5 mg Documented By: Admin: 09/28/24 23:19 Dose: 5 mg Documented By: ANTONIO Polyethylene Glycol (Polyethylene (Miralax) 17 Gm Pack) 17 gm PO DAILY ROXANA Stop: 10/31/24 08:59 Last Admin: 10/01/24 08:45 Dose: 17 gm Documented By: MERLY Prednisone (Prednisone 50 Mg Tab) 50 mg PO Q8 ROXANA Stop: 09/30/24 06:01 Last Admin: 09/30/24 05:37 Dose: 50 mg Documented By: Admin: 09/29/24 21:16 Dose: 50 mg Documented By: Admin: 09/29/24 13:53 Dose: 50 mg Documented By: DAVID Rosuvastatin Calcium (Rosuvastatin Calcium 5 Mg Tab) 5 mg PO QPM ROXANA Stop: 10/28/24 21:18 Last Admin: 09/30/24 20:36 Dose: 5 mg Documented By: Admin: 09/29/24 20:39 Dose: 5 mg Documented By: Admin: 09/28/24 23:19 Dose: 5 mg Documented By: ANTONIO Sennosides (Senna 8.6 Mg Tab) 17.2 mg PO QAM ROXANA Stop: 10/31/24 08:59 Last Admin: 10/01/24 08:43 Dose: 17.2 mg Documented By: MERLY Imaging Data Radiologist's Impression: Chest X-Ray 09/28/24 14:37 XR chest 1V not portable CLINICAL HISTORY: Chest pain, nonspecific COMPARISON STUDY: 09/17/2024 FINDINGS: Heart size and pulmonary vasculature are normal. No consolidation or pleural effusion. No pneumothorax. IMPRESSION: No acute findings. ACT 112: Negative or not required by law. Electronically signed by: Reji Diza M.D. 09/28/2024 3:[address] 09/28/24 15:42 Clinical History: Recurrent falls Technique: Axial computed tomography images were obtained of the brain without intravenous contrast. Findings: There is diffuse cerebral atrophy, within expected limits for the patient's age. Areas of decreased attenuation are seen within the periventricular white matter, likely representing chronic small vessel ischemic disease. There is no definite sign of acute or old infarction. No intracranial hemorrhage is evident. No definite mass lesion is seen on this noncontrast examination. There is no midline shift or other form of herniation. No hydrocephalus is seen. There is a posterior scalp hematoma. No fracture is identified. There is fluid and mucosal thickening of the left maxillary sinus. The mastoid air cells appear clear. Impression: 1. Cerebral atrophy and chronic small vessel ischemic disease 2. No sign of intracranial hemorrhage 3. Posterior scalp hematoma 4. Left maxillary sinusitis Electronically signed by Gabriele Lemus 09-28-2024 4:18 PM Discharge Plan Visit Data Chief Complaint: Fall Stated Complaint: SUTURES REMOVED CLAMPS ED Provider: Alex Boone Discharge Problem: Syncope, Recurrent falls, ABLA (acute blood loss anemia), Hematoma of occipital region of scalp, Laceration of scalp Patient Disposition: Admitted As Inpatient Condition: Good Discharge Instructions Interventions: ED Discharge Assessment Last Done: 09/28/24 20:25
[2024-09-28] MEDS: ALUMINUM/MAGNESIUM/SIMETH (MAALOX MAX) 30 ML UDC PO STA (17:32)
[2024-09-28] MEDS: PANTOprazole 40 MG/10 ML SYR IV ONE (17:32)
--- NOTE | 2024-09-28 18:03 | CT Scan Report ---
Clinical History: Epigastric pain Technique: Axial computed tomography images were obtained of the abdomen and pelvis without intravenous contrast. Comparison is made to the prior CT dated 09/17/2024 Findings: The liver is overall of normal size, attenuation, and contour with no sign of cirrhosis or significant fatty infiltration. No definite liver mass lesion is seen on this noncontrast study. The gallbladder appears to have been removed. No bile duct dilatation is noted. The spleen is absent, with a small splenule remaining. There is a suspected small 7 mm cyst in the mid pancreatic body. The pancreas otherwise appears normal with no sign of acute or chronic pancreatitis and no mass lesion noted. The pancreatic duct is of normal caliber. The adrenal glands appear unremarkable. There is a 2 mm calculus in the mid right kidney. No left renal or proximal ureteral calculi are seen. There is no hydronephrosis or perinephric stranding. No definite renal mass lesion is identified. The aorta is of normal caliber. No abdominal adenopathy is seen. There is a small hiatal hernia. 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 There is no sign of small bowel obstruction. The colon appears unremarkable. The appendix appears normal also. No free intraperitoneal fluid or air is identified. No distal ureteral or bladder calculi are seen. No obvious bladder mass lesion is evident. The iliac arteries are of normal caliber. No pelvic adenopathy is noted. The lungs bases appear clear. There is coronary atherosclerosis Lumbar degenerative disc disease is seen. There is bilateral hip osteoarthritis. No fracture is identified. No focal osseous lesion is seen Impression: 1. Small nonobstructing right renal calculus 2. Small hiatal hernia 3. Suspected small pancreatic cyst, likely a benign congenital or post inflammatory cyst. A follow-up pancreatic protocol CT or MRI could be considered Electronically signed by Gabriele Lemus 09-28-2024 6:02 PM
--- NOTE | 2024-09-28 18:12 | History & Physical Report ---
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 Falls are preceded by a sensory disturbance of the right head/right scalp along with right arm "shakes." #suspected recurrent syncope preceding the recurrent falls - -I do believe patient loses consciousness albeit briefly which then leads to the falls -she has a well-documented history of numerous falls over the years some of which have led to significant injuries including the recent scalp laceration -I am uncertain of the specific etiology of the syncope - the prodromal right head sensory disturbance and right arm "shakes" are concerning, however -atypical seizures? -TIA events? -subclavian steal with "drop" attacks? -valvular disease? -sinus pauses or AV block? -hypoglycemia events? -other? -check MRI brain, MRA head/neck (latter especially with the b/l carotid bruits) -check echo -consider EEG -check orthostatic BPs -telemetry -certainly her acute blood loss anemia could be worsening the process #acute blood loss anemia - -Hb 11.2 on 09/17, now 8.2 -although she has seen some minor BRB with wiping, it sounds as if she had significant blood loss with her scalp laceration -with that said she also reports "dark" stools -my suspicion for acute GI bleed is low but reasonable to continue PPI IV -recheck CBC am -check full Fe panel -B12 level in April was >1500 -to be complete check a folate at some point #right scalp/head sensory disturbance with arm shaking - -see discussion above -TIA? -atypical seizure? -other? #HTN - -cont metoprolol, nifedipine, losartan -hold diuretic for now (maybe slightly volume contracted based on elevated BUN, etc) #Hyperlipidemia - -check CPK given multiple falls -if normal continue her crestor #h/o CAD - -1998 - acute VA; s/p cath, no stents or intervention needed -does not follow with cardiology -minimal trop elevation - likely demand ischemia; ACS not suspected -echo -metoprolol, statin, hold aspirin for now until acute anemia is sorted out #T2DM - -last a1c was 5.5% in April; check another while here -hold home meds including metformin -could patient be having hypoglycemia causing some of her falls #h/o CREST syndrome variant of Scleroderma - #h/o lymphoma? - -I do not see any oncology records in the chart; will have to investigate the old chart to get more details #h/o B12 deficiency - -last B12 level robust - >1500 - in April 2024 #recurrent e.coli UTIs - -just completed 3 day course of abx recently for e.coli -u/a suggestive of ongoing UTI; send culture -rocephin 2gm IV daily and narrow when able -not clearing UTIs due to kidney stone? asplenic state? other? #asplenic state - -s/p splenectomy due to prior ITP years ago -platelets are wnl #DVT proph - -hold on chemical means due to recent acute blood loss anemia, recent scalp bleeding, ?GI bleeding, etc. 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 Patient was walking through her kitchen when she developed right arm shaking, then a numbness sensation on the right side of her scalp near the right church/right ear/below the ear, followed by "just going out." The next thing she knew she was on the floor. She does not remember what happened after she developed the numbness sensation on the right side of the head. She simply woke up on the floor. Her other falls recently have been quite similar. She has the right arm shakes (never the right leg), followed by the sensory disturbance of the right head, and simply passes out. She does not have left arm or left leg or left facial symptoms. Denies focal weakness of any limb. She does have generalized weakness - especially both legs - over the last few weeks. She has had increasing fatigue in the last several weeks as well. On 09/17 she had a severe fall outside on a concrete sidewalk. She had similar symptoms prior to that fall much like today's event. She struck the back of her head and was brought to the ER for laceration repair. She lost a considerable amount of blood from that laceration. It required staple repair. On 09/18 she had a fall at her home that was witnessed by one of her friends. Apparently the patient's eyes "rolled back in her head" right before she fell to the floor. In the ER today the ER physician removed the danielle from the posterior scalp. There is slight dehiscence of the wound but it is minor. Patient denies any headaches. Denies chest pain or dyspnea associated with her events/falls. Denies vertigo. Denies visual changes. Finally, patient mentions occasional bright red blood per rectum - typically ONLY with wiping. Has h/o hemorrhoids. Allergies Allergy/AdvReac Type Severity Reaction Status Date / Time latex Allergy Severe Hives Verified 09/28/24 18:13 Iodinated Contrast Media Allergy Intermediate Rash Verified 09/28/24 18:13 ciprofloxacin Allergy Mild Urticaria Verified 09/28/24 18:13 canagliflozin [From Invokana] Allergy Unknown Unknown Verified 09/28/24 18:13 simvastatin AdvReac Intermediate Myalgia Verified 09/28/24 18:13 adhesive AdvReac Mild Redness, Verified 09/28/24 18:13 itchy skin Home Medications Medication Instructions Recorded Confirmed Type blood-glucose meter #1 ea 08/05/18 09/28/24 Rx acetaminophen 650 mg 650 mg PO BID PRN Pain 01/06/19 09/28/24 History tablet,extended release cyanocobalamin (vitamin B-12) 1,000 mcg sublingual QAM 01/06/19 09/28/24 History 1,000 mcg sublingual tablet lysine 1,000 mg tablet 1,000 mg PO QAM 01/06/19 09/28/24 History zinc gluconate 50 mg tablet 50 mg PO QAM 01/06/19 09/28/24 History aspirin 81 mg tablet,delayed 81 mg PO HS 07/31/19 09/28/24 History release diphenhydramine HCl 25 mg tablet 25 mg PO DAILY PRN Itching 03/24/21 09/28/24 History (Benadryl Allergy) Nervive Nerve Pain Relief 1 tab PO QAM 05/07/21 09/28/24 History valacyclovir 1 gram tablet See Rx Instructions PO .COMPLEX 05/21/21 09/28/24 Rx #30 tabs coenzyme Q10 75 mg capsule (Ultra 75 mg PO QAM 09/15/22 09/28/24 History CoQ10) pediatric multivitamin no.76 1 tab PO BID 09/16/22 09/28/24 History (Flintstones Complete chewable tablet) mupirocin 2 % topical ointment 1 applic topical BID PRN DRYNESS 09/23/22 09/28/24 History (Centany) polyethylene glycol 3350 17 17 g PO DAILY PRN Constipation 09/23/22 09/28/24 History gram/dose oral powder (Miralax) nitroglycerin 0.4 mg sublingual 0.4 mg sublingual Q5M PRN chest 10/07/23 09/28/24 Rx tablet pain #25 tabs blood sugar diagnostic (OneTouch #100 strips 10/15/23 09/28/24 Rx Ultra Test strips) betamethasone dipropionate 0.05 % 1 applic topical BID PRN itching 11/18/23 09/28/24 Rx topical ointment #45 grams trospium 20 mg tablet 20 mg PO BID #180 tabs 02/21/24 09/28/24 Rx gabapentin 300 mg capsule 300 mg PO TID #270 caps 02/28/24 09/28/24 Rx pilocarpine HCl 5 mg tablet 5 mg PO TID #270 tabs 03/02/24 09/28/24 Rx (Salagen (pilocarpine)) nystatin 100,000 unit/gram topical 1 applic topical TID PRN 04/10/24 09/28/24 Rx powder intertrigo #60 grams linaclotide 290 mcg capsule 290 mcg PO QAM #90 caps 06/01/24 09/28/24 Rx (Linzess) alendronate 70 mg tablet (Fosamax) 70 mg PO DIRECTED #12 tabs 06/29/24 09/28/24 Rx losartan 50 mg tablet 50 mg PO QAM #90 tabs 06/29/24 09/28/24 Rx nifedipine 60 mg tablet,extended 60 mg PO DAILY #90 tabs 06/29/24 09/28/24 Rx release metoprolol tartrate 25 mg tablet 25 mg PO DAILY #90 tabs 07/03/24 09/28/24 Rx dulaglutide 1.5 mg/0.5 mL 1.5 mg (0.5 mL) subcut WEEKLY #2 mL 07/28/24 09/28/24 Rx subcutaneous pen injector (Trulicity) albuterol sulfate 90 mcg/actuation 2 puff inhalation QID PRN 08/21/24 09/28/24 Rx aerosol inhaler (Ventolin HFA) shortness of breath or wheezing #18 grams rosuvastatin 5 mg tablet (Crestor) 5 mg PO QPM #90 tabs 08/21/24 09/28/24 Rx celecoxib 100 mg capsule (Celebrex) 100 mg PO BID #180 caps 09/25/24 09/28/24 Rx metformin 500 mg tablet,extended 500 mg PO BID #360 tabs 09/25/24 09/28/24 Rx release 24 hr pantoprazole 40 mg tablet,delayed 40 mg PO QAM #90 tabs 09/25/24 09/28/24 Rx release (Protonix) calcium carbonate 600 mg PO DAILY 09/28/24 09/28/24 History duloxetine 30 mg capsule,delayed 30 mg PO QAM 09/28/24 09/28/24 History release duloxetine 60 mg capsule,delayed 60 mg PO QAM 09/28/24 09/28/24 History release hydrochlorothiazide 12.5 mg tablet 12.5 mg PO QAM 09/28/24 09/28/24 History magnesium 250 mg tablet 250 mg PO DAILY 09/28/24 09/28/24 History Past Med/Surg History Problem List (Updated 09/28/24 @ 20:30 by Lul Sapp MD) Recurrent UTI Acquired asplenia Acute blood loss anemia Recurrent falls Fall on or from stairs or steps (Acute) Hematoma of parietal scalp (Acute) Scalp laceration (Acute) Sensorineural hearing loss, bilateral Limited scleroderma Obesity Personal history of VA (myocardial infarction) CAD (coronary artery disease) VA 1998 - Per cardio, "cardiac catheterization at [facility], which revealed normal coronary anatomy, however there was a distal diagonal not visualized. 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 Nontoxic multinodular goiter Osteoarthritis, multiple sites Osteopenia Pernicious anemia Raynaud disease Sleep apnea Urge incontinence of urine Vitamin B12 deficiency Medical History Closed fracture of nasal septum Mechanical fall (trip) in parking lot (10/2021) Fracture of nasal bone with routine healing History of ITP s/p splenectomy Dysphagia History of diverticulosis Difficulty breathing With humidity (reason for inhaler per pt) Denies asthma/COPD hx Hx of sleep apnea No device Hypertension Hyperlipidemia GERD (gastroesophageal reflux disease) Myocardial Infarction 1998 Hyponatremia Nocturia Renal neoplasm Surgical History History of temporal artery biopsy (09/23/22) Left Temporal Artery Biopsy(Left) - Reji St, DO, FACS History of sinus surgery History of esophagogastroduodenoscopy (EGD) History of colonoscopy History of tooth extraction History of tonsillectomy and adenoidectomy History of cardiac cath 1998 ([facility]) > no stents History of cataract surgery R/L History of splenectomy Removed age 18 (r/t bleeding issues) History of cholecystectomy History of gastric surgery [id number]-Y (2004) Family History Mother Diabetes Coronary heart disease Hypertension Sister Lymphoma in 2021 secondary to leukemia conversion Unknown Bladder cancer Hypertension Grandmother (Maternal) Diabetes Father Unknown family medical history Denies family history of Ovarian cancer Prostate cancer Breast cancer Colorectal cancer Social History Smoking Status: Unknown if ever smoked Tobacco Type: Cigarettes Age Started Using Tobacco: 42; Age Quit Using Tobacco: 44; packs per day: 0.5; Second Hand Exposure: Yes (HX); Do You Dip or Chew Tobacco: No; Hx Alcohol Use: No Hx Substance Use: No Preferred Language: Moldovan Communication Ability: Effective Visual Impairment: No Limitations Hearing Ability: Normal Cardiology Technician Required: No Beliefs That Will Affect Care: None marital status: Current Living Situation: Alone current occupational status: retired How many Children do You have: 1 Other Information That Helps Us Care for You: No Feels Safe at Home: Yes Safety Concerns: Feels Safe At This Time Childhood Exposure to Second-Hand Smoke: Yes Diet: diabetic caffeine: Yes during the past year weight has: increased > 10 lbs Dental Care, Regularly: No Physical Activity Frequency: 1-2 Times per Week Seatbelt Use: always Sunscreen Use: No Assistive Devices: Cane and Walker Review of Systems Review of Systems: gen - no fevers or chills; does feel "cold" all the time/chronic; eating has been wnl eyes - no visual field cuts or visual changes HENT - chronic dry mouth, no dysphagia, no ear pain or sore throat CV - no chest pains, palpitations; occasional edema of legs; no orthopnea/PND Pulm - no dyspnea, mild cough with frequent throat clearing GI - no nausea/emesis/diarrhea; stools are "dark" at times; does see BRB with wiping - has hemorrhoids; no rectal pain - recent Rx for UTI; no dysuria musculo - denies myalgias, does state "legs feel weak" neuro - no headaches, but has numbness sensation of right scalp/head prior to falls (present last few weeks); right arm "shakes" just before her falls, but family has noted right arm shaking at other times as well; no other shaking of other extremities; no focal motor deficits skin - recent lac scalp; no rash endo - is diabetic, BSGs are all controlled Physical Exam Physical Exam: gen - NAD, pleasant; speech fluent/clear head - laceration posterior scalp - mild blood present, 90% or more of the wound is well-approximated; slight dehiscence in 1 portion; rest of head is atraumatic, no temporal artery tenderness b/l eyes - PERRL, mild horizontal nystagmus, EOMI ENT - nose clear, mouth with severely dry MM neck - no JVD; +b/l carotid bruits; no goiter; no lymph nodes heart - RRR, s1 s2, 1/6 TAMARA LSB lungs - CTA b/l abd - soft ND BS+; slightly tender central abdomen but no abnormal findings; no signs of trauma on abdominal wall ext - trace edema b/l, pulses b/l feet 1+ neuro - strength 5/5 x 4 exts; DTRs 2+ b/l upper & lower exts; no tremor; finger/nose/finger maneuver without ataxia b/l hands; CN 3-12 intact (except mild horizontal nystagmus) skin - no rash, laceration scalp as above psych - a/o x 3 Results & Data Results & Data Vital Signs (Past 12 Hours) Vital Signs Temp Pulse Pulse Resp BP BP Pulse Ox 09/28/24 17:30 68 20 135/90 99 09/28/24 17:00 68 16 198/85 H 100 09/28/24 16:30 65 24 188/77 H 99 09/28/24 16:20 62 09/28/24 16:19 98 09/28/24 16:19 98 09/28/24 16:19 69 18 182/79 H 99 09/28/24 14:54 36.7 C 70 22 102/68 92 O2 Del Method 09/28/24 17:30 Room Air 09/28/24 17:00 Room Air 09/28/24 16:30 Room Air 09/28/24 16:20 09/28/24 16:19 Room Air 09/28/24 16:19 Room Air 09/28/24 16:19 Room Air 09/28/24 14:54 Room Air Laboratory Results Laboratory Results - last 24 hr 09/28/24 09/28/24 14:45 18:03 WBC 10.44 RBC 2.72 L Hgb 8.2 L Hct 23.9 L MCV 87.9 MCH 30.1 MCHC 34.3 RDW Std Deviation 46.0 RDW Coeff of Charles 14.5 Plt Count 408 H MPV 8.7 L Immature Gran % (Auto) 0.6 Neut % (Auto) 67.0 Lymph % (Auto) 21.3 [place] % (Auto) 9.1 Eos % (Auto) 1.6 Baso % (Auto) 0.4 Neut # (Auto) 7.00 H Lymph # (Auto) 2.22 [place] # (Auto) 0.95 H Eos # (Auto) 0.17 Baso # (Auto) 0.04 Immature Gran # (Auto) 0.06 PT 9.8 INR 0.9 APTT 27 PTT Ratio 1.0 Sodium 132 L Potassium 4.7 Chloride 101 Carbon Dioxide 25 Anion Gap 6 BUN 25 H Creatinine 0.94 Est Cr Clr Drug Dosing Not Reportable eGFR 61.72 BUN/Creatinine Ratio 26.6 H Glucose 104 H Calcium 8.5 L Total Bilirubin 0.3 AST 20 ALT 12 Alkaline Phosphatase 62 Total Creatine Kinase Pending Troponin I High Sens 14.8 H Total Protein 6.2 Albumin 3.8 Globulin 2.4 L Albumin/Globulin Ratio 1.6 Urine Color Yellow Urine Appearance Cloudy A Urine pH 8.0 H Ur Specific [place] 1.005 Urine Protein Trace H Urine Glucose (UA) Negative Urine Ketones Negative Urine Blood 1+ H Urine Nitrite Negative Urine Bilirubin Negative Urine Urobilinogen Negative Ur Leukocyte Esterase 3+ H Urine WBC (Auto) >50 H Urine RBC (Auto) 3-5 H U Hyaline Cast (Auto) 3-5 H U Epithel Cells (Auto) 6-10 H Urine Bacteria (Auto) 4+ H Hyaline Casts Present A Urine Comment Diagnostic Findings Chest X-Ray 09/28/24 14:37 XR chest 1V not portable CLINICAL HISTORY: Chest pain, nonspecific COMPARISON STUDY: 09/17/2024 FINDINGS: Heart size and pulmonary vasculature are normal. No consolidation or pleural effusion. No pneumothorax. IMPRESSION: No acute findings. ACT 112: Negative or not required by law. Electronically signed by: Reji Diaz M.D. 09/28/2024 3:[address] 09/28/24 15:42 Clinical History: Recurrent falls Technique: Axial computed tomography images were obtained of the brain without intravenous contrast. Findings: There is diffuse cerebral atrophy, within expected limits for the patient's age. Areas of decreased attenuation are seen within the periventricular white matter, likely representing chronic small vessel ischemic disease. There is no definite sign of acute or old infarction. No intracranial hemorrhage is evident. No definite mass lesion is seen on this noncontrast examination. There is no midline shift or other form of herniation. No hydrocephalus is seen. There is a posterior scalp hematoma. No fracture is identified. There is fluid and mucosal thickening of the left maxillary sinus. The mastoid air cells appear clear. Impression: 1. Cerebral atrophy and chronic small vessel ischemic disease 2. No sign of intracranial hemorrhage 3. Posterior scalp hematoma 4. Left maxillary sinusitis Electronically signed by Gabriele Lemus 09-28-2024 4:18 PM Abdomen/Pelvis CT 09/28/24 17:05 Clinical History: Epigastric pain Technique: Axial computed tomography images were obtained of the abdomen and pelvis without intravenous contrast. Comparison is made to the prior CT dated 09/17/2024 Findings: The liver is overall of normal size, attenuation, and contour with no sign of cirrhosis or significant fatty infiltration. No definite liver mass lesion is seen on this noncontrast study. The gallbladder appears to have been removed. No bile duct dilatation is noted. The spleen is absent, with a small splenule remaining. There is a suspected small 7 mm cyst in the mid pancreatic body. The pancreas otherwise appears normal with no sign of acute or chronic pancreatitis and no mass lesion noted. The pancreatic duct is of normal caliber. The adrenal glands appear unremarkable. There is a 2 mm calculus in the mid right kidney. No left renal or proximal ureteral calculi are seen. There is no hydronephrosis or perinephric stranding. No definite renal mass lesion is identified. The aorta is of normal caliber. No abdominal adenopathy is seen. There is a small hiatal hernia. 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 There is no sign of small bowel obstruction. The colon appears unremarkable. The appendix appears normal also. No free intraperitoneal fluid or air is identified. No distal ureteral or bladder calculi are seen. No obvious bladder mass lesion is evident. The iliac arteries are of normal caliber. No pelvic adenopathy is noted. The lungs bases appear clear. There is coronary atherosclerosis Lumbar degenerative disc disease is seen. There is bilateral hip osteoarthritis. No fracture is identified. No focal osseous lesion is seen Impression: 1. Small nonobstructing right renal calculus 2. Small hiatal hernia 3. Suspected small pancreatic cyst, likely a benign congenital or post inflammatory cyst. A follow-up pancreatic protocol CT or MRI could be considered Electronically signed by Gabriele Lemus 09-28-2024 6:02 PM EKG - my reading - NSR, low voltage, nonspecific ST changes III/AVF, no other ST changes Code Status & VTE Plan Code Status full code PG Care Time/CCT Total # of Minutes Spent Total Time Spent with Patient: Total time spent is greater than 50% in coordination of care (as documented) at patient's floor/unit and/or counseling patient: Coding Level of Care Code 02043 INT INP/OBS CARE 3/75MIN Diagnoses Recurrent falls R29.6 Acute blood loss anemia D62 Hematoma of parietal scalp S00.03XA Scalp laceration S01.01XA Encounter type: initial encounter Coronary artery disease involving [place] coronary artery of [place] heart without angina pectoris I25.10 Associated angina: without angina Coronary Disease-Associated Artery/Lesion type: [place] artery [place] vs. transplanted heart: [place] heart CREST variant of scleroderma M34.1 Diabetes mellitus type 2 with neurological manifestations E11.49 Gastroesophageal reflux disease without esophagitis K21.9 Esophagitis presence: without esophagitis Hypercholesterolemia E78.00 Primary hypertension I10 Hypertension type: primary hypertension Hyponatremia E87.1 History of ITP Z86.2 Acquired asplenia Z90.81 Recurrent UTI N39.0 (4) Scalp laceration Encounter type: initial encounter Qualified Code(s): S01.01XA - Laceration without foreign body of scalp, initial encounter (5) CAD (coronary artery disease) Associated angina: without angina Coronary Disease-Associated Artery/Lesion type: [place] artery [place] vs. transplanted heart: [place] heart Qualified Code(s): I25.10 - Atherosclerotic heart disease of [place] coronary artery without angina pectoris (8) Gastroesophageal reflux disease Esophagitis presence: without esophagitis Qualified Code(s): K21.9 - Gastro- esophageal reflux disease without esophagitis (10) Hypertension Hypertension type: primary hypertension Qualified Code(s): I10 - Essential (primary) hypertension
[2024-09-28 18:27] LABS: Appearance Urine Cloudy (Clear); Bacteria Urine Automated 4+ (None Seen); Glucose Urine UA Negative (Negative); WBC Urine Automated >50 /hpf (0-5)
[2024-09-28 20:38] LABS: Creatine Kinase 73 U/L (26-192)
[2024-09-28] MEDS ORDERED: diphenhydrAMINE Capsule 25 MG CAP PO PRN (21:19)
[2024-09-28] MEDS ORDERED: NITROGLYCERIN SL 0.4 MG/TAB TAB SL PRN (21:19)
[2024-09-28] MEDS ORDERED: POLYETHYLENE (MIRALAX) 17 GM PACK PO PRN (21:19)
[2024-09-28] MEDS ORDERED: ONDANSETRON INJ 2 MG/ML 2 ML VIAL IV PRN (21:19)
[2024-09-28] MEDS ORDERED: ALBUTEROL HFA 8 GM INHALER INH PRN (21:19)
[2024-09-28] MEDS ORDERED: MELATONIN 3 MG TAB PO PRN (21:19)
[2024-09-28] MEDS ORDERED: NYSTATIN POWDER 15GM BTL EXT PRN (21:19)
[2024-09-28] MEDS ORDERED: GLUCOSE 40% GEL 15 GM TUBE PO PRN (21:45)
[2024-09-28] MEDS ORDERED: CARBOHYDRATES FOR HYPOGLYCEMIA PO PRN (21:45)
[2024-09-28] MEDS ORDERED: GLUCOSE 10 TAB/TUBE PO PRN (21:45)
[2024-09-28] MEDS ORDERED: GLUCAGON FOR INJ 1 MG VIAL SQ PRN (21:45)
[2024-09-28] MEDS ORDERED: DEXTROSE 50% 50 ML SYRINGE IV PRN (21:45)
[2024-09-28 23:14] LABS: Influenza A virus by PCR Negative (Neg); Influenza B virus by PCR Negative (Neg); SARS CoV2 RNA(COVID-19) Ceph NEGATIVE (Negative)
[2024-09-28] MEDS: INSULIN ASPART PER UNIT CHARGE SC SCH (23:16)
[2024-09-28] MEDS: PILOCARPINE HCL 5 MG TABLET PO SCH (23:19)
[2024-09-28] MEDS: PANTOprazole 40 MG/10 ML SYR IV SCH (23:19)
[2024-09-28] MEDS: GABAPENTIN 300 MG CAP PO SCH (23:19)
[2024-09-28] MEDS: ROSUVASTATIN CALCIUM 5 MG TAB PO SCH (23:19)
[2024-09-28] MEDS: cefTRIAXone SODIUM 2,000 MG/50 ML BAG IV STA (23:27)
--- NOTE | 2024-09-28 23:54 | Magnetic Resonance Report ---
Exam(s): MRA HEAD Without Contrast EXAM: MR Angiography Head Without Intravenous Contrast CLINICAL HISTORY: Reason for exam: recurrent syncope. TECHNIQUE: Magnetic resonance angiography images of the head without intravenous contrast. COMPARISON: No relevant prior studies available. FINDINGS: Right internal carotid artery: No acute findings. Intracranial segment is patent with no significant stenosis. No aneurysm. Right anterior cerebral artery: Unremarkable. No occlusion or significant stenosis. No aneurysm. Right middle cerebral artery: Unremarkable. No occlusion or significant stenosis. No aneurysm. Right posterior cerebral artery: Unremarkable. No occlusion or significant stenosis. No aneurysm. Right vertebral artery: Unremarkable as visualized. Left internal carotid artery: There is significantly diminished flow enhancement in the petrous, cavernous and supraclinoid ICA.. No aneurysm. Left anterior cerebral artery: Unremarkable. No occlusion or significant stenosis. No aneurysm. Left middle cerebral artery: Unremarkable. No occlusion or significant stenosis. No aneurysm. Left posterior cerebral artery: Unremarkable. No occlusion or significant stenosis. No aneurysm. Left vertebral artery: Unremarkable as visualized. Basilar artery: Unremarkable. No occlusion or significant stenosis. No aneurysm. IMPRESSION: Significantly diminished flow related enhancement in the left ICA concerning for slow blood flow. Recommend CT angiogram of the head and neck for further evaluation. Communications: Verify Receipt Electronically signed by: Hiral Brothers MD 09/28/24 23:53 PM
--- NOTE | 2024-09-29 00:10 | Magnetic Resonance Report ---
Exam(s): MRA NECK Without Contrast EXAM: MR Angiography Neck Without Intravenous Contrast CLINICAL HISTORY: Reason for exam: b/l carotid bruits, recurrent syncope. TECHNIQUE: Magnetic resonance angiography images of the neck without intravenous contrast. COMPARISON: No relevant prior studies available. FINDINGS: Right common carotid artery: Unremarkable. No significant stenosis. No dissection or occlusion. Right internal carotid artery: Unremarkable. Extracranial segment is patent with no significant stenosis. No dissection or occlusion. Right external carotid artery: Unremarkable. No occlusion. Right vertebral artery: Unremarkable. No significant stenosis. No dissection or occlusion. Left common carotid artery: Significantly diminished fluidly enhancement within the left common carotid artery. No dissection or occlusion. Left internal carotid artery: Significantly diminished fluidly enhancement in the left internal carotid artery. No dissection or occlusion. Left external carotid artery: Unremarkable. No occlusion. Left vertebral artery: Unremarkable. No significant stenosis. No dissection or occlusion. 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 CAROTID STENOSIS REFERENCE USING NASCET CRITERIA: % ICA stenosis = (1 - narrowest ICA diameter/diameter of distal cervical ICA) x 100. Mild - <50% stenosis. Moderate - 50-69% stenosis. Severe - 70-94% stenosis. Near occlusion - 95-99% stenosis. Occluded - 100% stenosis. IMPRESSION: Significantly diminished flow related enhancement within the left common carotid and internal carotid arteries concerning for slow blood flow. Recommend CT angiogram of the neck for further evaluation. There is a critical spinal canal stenosis at C3-4, C4-5 and C5-6. Recommend MRI of the cervical spine to evaluate for myelopathy. Communications: Verify Receipt Electronically signed by: Hiral Brothers MD 09/29/24 00:09 AM
--- NOTE | 2024-09-29 00:29 | Magnetic Resonance Report ---
Exam(s): MRI HEAD Without Contrast EXAM: MR Head Without Intravenous Contrast CLINICAL HISTORY: Reason for exam: episodes of RUE shaking, R scalp numbness. TECHNIQUE: Magnetic resonance images of the head/brain without intravenous contrast in multiple planes. COMPARISON: No relevant prior studies available. FINDINGS: Brain: There is loss of normal left ICA flow void concerning for slow flow or no blood flow. There is a remote ischemic injury of the right cerebellum. Moderate nonspecific white matter changes. No evidence of acute ischemic injury. Ventricles: Unremarkable. No ventriculomegaly. Bones/joints: Unremarkable. No acute fracture. There is mild soft tissue swelling over the right superior parasagittal scalp with small. Sinuses: Chronic ethmoid and left maxillary sinusitis. No acute sinusitis. Mastoid air cells: Unremarkable as visualized. No mastoid effusion. Orbits: Bilateral lens replacements. IMPRESSION: Loss of normal left ICA flow void concerning for slow flow or no blood flow. Recommend CT angiogram of the head and neck for further evaluation. No evidence of acute ischemic injury. Communications: Verify Receipt Electronically signed by: Hiral Brothers MD 09/29/24 00:28 AM
[2024-09-29 05:19] LABS: Hematocrit (blood only) 24.3 % (37.0-47.0); Hemoglobin 8.3 g/dl (12.0-16.0); Mean Corpuscular Hemoglobin 29.7 pg (25.0-34.0); Mean Corpuscular Volume 87.1 fL (80.0-100.0); Platelet Count 428 K/uL (130-400); RDW Standard Deviation 45.3 fL (36.4-46.3); Red Blood Count 2.79 M/uL (4.20-5.40); White Blood Count 12.40 K/ul (4.8-10.8)
[2024-09-29 05:34] LABS: Anion Gap 7.0 (3-11); Blood Urea Nitrogen 18.0 mg/dl (6-23); Calcium 8.5 mg/dl (8.6-10.3); Carbon Dioxide 27.0 mmol/L (21-32); Chloride 102.0 mmol/L (98-107); Creatinine Clr Calc Pharmacy 54.0 ml/min; Glucose 119.0 mg/dl (70-99(Fasting)); Iron 32.0 mcg/dl (35-150); Potassium 4.2 mmol/L (3.5-5.1); Sodium 136.0 mmol/L (136-145); Total Iron Binding Cap Calc 441.0 mcg/dl (250-450); Transferrin 315.0 mg/dl (200-360); Transferrin (FE) Percent Satur 7.0 % (15-50)
[2024-09-29 05:54] LABS: Ferritin 21.6 ng/ml (8-388)
[2024-09-29] MEDS: NIFEdipine EXTENDED REL 30 MG TABCR PO SCH (09:06)
[2024-09-29] MEDS: METOPROLOL TARTRATE 25 MG TAB PO SCH (09:07)
[2024-09-29] MEDS: CYANOCOBALAMIN (B-12) 500 MCG TABLET PO SCH (09:07)
[2024-09-29] MEDS: LINACLOTIDE 145 MCG CAPSULE PO SCH (09:09)
[2024-09-29] MEDS: LOSARTAN POTASSIUM 50 MG TAB PO SCH (09:09)
--- NOTE | 2024-09-29 11:28 | Ultrasound Report ---
CAROTID ARTERY ULTRASOUND CLINICAL HISTORY: L ICA stenosis - severe/critical? COMPARISON STUDY: MRA of 09/28/2024 and ultrasound of 02/01/2020 TECHNIQUE: Real-time, grayscale, and color Doppler sonography of the carotid and vertebral arteries w as performed. Images were viewed in the transverse and longitudinal planes. FINDINGS: There is coarse plaque at the proximal aspect of the left internal carotid artery. There is abnormally increased velocity of 418 cm/s proximally at the left internal carotid artery and the ICA to CCA ratio on the left is 19. This is consistent with greater than 90% stenosis. No other evidence of significant stenosis seen at the common carotid arteries bilaterally or the righ t internal carotid artery. There is moderate stenosis at the origin of the right external carotid art zeus. There is antegrade flow in the vertebral arteries bilaterally. IMPRESSION: Greater than 90% stenosis proximal left internal carotid artery. ACT 112: Positive. There are findings on this exam that require communication between the performing entity and the patient following Patient Test Result Information Act ([place] Act 112) guidelines. Electronically signed by: Reji Diaz M.D. 09/29/2024 11:26 AM
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
--- NOTE | 2024-09-29 12:51 | Consultation ---
Date of Consultation September 29, 2024 Assessment & Plan (1) Stenosis of left internal carotid artery: On reviewing the studies, it is hard to see the left carotid artery at all on the MRA although the ultrasound shows a patent left carotid artery with a severe stenosis. She does have a contrast allergy although it was only a rash and it was years ago. I would recommend pre treating her with steroids, antihistimine, and an H2 giovani pre procedure and going ahead with a CTA of her neck. If she should develop a rash then would place her on a medrol dose pack. She understands and agrees to the CTA. If her narrowing is indeed severe then intervention would be recommended. I would recommend neuro eval. Thank you very much for letting us participate in the care of this patient. History of Present Illness Reason for Consultation: Severe left internal carotid artery stenosis Attending Physician: Lul Sapp MD History of Present Illness This is a 79yo female who was admitted after a fall. She denies any weakness before, during or after the fall. She claims to have slipped on a step. She did loose a fair amount of blood from the fall. During her workup she was found to have a severe left internal carotid artery stenosis on ultrasound and diminished flow on MRA. She does have a contrast allergy. She claims to have had a rash years ago from the contrast. Allergies Allergy/AdvReac Type Severity Reaction Status Date / Time latex Allergy Severe Hives Verified 09/28/24 18:13 Iodinated Contrast Media Allergy Intermediate Rash Verified 09/28/24 18:13 ciprofloxacin Allergy Mild Urticaria Verified 09/28/24 18:13 canagliflozin [From Invokana] Allergy Unknown Unknown Verified 09/28/24 18:13 simvastatin AdvReac Intermediate Myalgia Verified 09/28/24 18:13 adhesive AdvReac Mild Redness, Verified 09/28/24 18:13 itchy skin Home Medications Medication Instructions Recorded Confirmed Type blood-glucose meter #1 ea 08/05/18 09/28/24 Rx acetaminophen 650 mg 650 mg PO BID PRN Pain 01/06/19 09/28/24 History tablet,extended release cyanocobalamin (vitamin B-12) 1,000 mcg sublingual QAM 01/06/19 09/28/24 History 1,000 mcg sublingual tablet lysine 1,000 mg tablet 1,000 mg PO QAM 01/06/19 09/28/24 History zinc gluconate 50 mg tablet 50 mg PO QAM 01/06/19 09/28/24 History aspirin 81 mg tablet,delayed 81 mg PO HS 07/31/19 09/28/24 History release diphenhydramine HCl 25 mg tablet 25 mg PO DAILY PRN Itching 03/24/21 09/28/24 History (Benadryl Allergy) Nervive Nerve Pain Relief 1 tab PO QAM 05/07/21 09/28/24 History valacyclovir 1 gram tablet See Rx Instructions PO .COMPLEX 05/21/21 09/28/24 Rx #30 tabs coenzyme Q10 75 mg capsule (Ultra 75 mg PO QAM 09/15/22 09/28/24 History CoQ10) pediatric multivitamin no.76 1 tab PO BID 09/16/22 09/28/24 History (Flintstones Complete chewable tablet) mupirocin 2 % topical ointment 1 applic topical BID PRN DRYNESS 09/23/22 09/28/24 History (Centany) polyethylene glycol 3350 17 17 g PO DAILY PRN Constipation 09/23/22 09/28/24 History gram/dose oral powder (Miralax) nitroglycerin 0.4 mg sublingual 0.4 mg sublingual Q5M PRN chest 10/07/23 07/03/25 Rx tablet pain #25 tabs blood sugar diagnostic (OneTouch #100 strips 10/15/23 09/28/24 Rx Ultra Test strips) betamethasone dipropionate 0.05 % 1 applic topical BID PRN itching 11/18/23 09/28/24 Rx topical ointment #45 grams trospium 20 mg tablet 20 mg PO BID #180 tabs 02/21/24 09/28/24 Rx gabapentin 300 mg capsule 300 mg PO TID #270 caps 02/28/24 09/28/24 Rx pilocarpine HCl 5 mg tablet 5 mg PO TID #270 tabs 03/02/24 09/28/24 Rx (Salagen (pilocarpine)) nystatin 100,000 unit/gram topical 1 applic topical TID PRN 04/10/24 09/28/24 Rx powder intertrigo #60 grams linaclotide 290 mcg capsule 290 mcg PO QAM #90 caps 06/01/24 09/28/24 Rx (Linzess) alendronate 70 mg tablet (Fosamax) 70 mg PO DIRECTED #12 tabs 06/29/24 09/28/24 Rx losartan 50 mg tablet 50 mg PO QAM #90 tabs 06/29/24 09/28/24 Rx nifedipine 60 mg tablet,extended 60 mg PO DAILY #90 tabs 06/29/24 09/28/24 Rx release metoprolol tartrate 25 mg tablet 25 mg PO DAILY #90 tabs 07/03/24 09/28/24 Rx dulaglutide 1.5 mg/0.5 mL 1.5 mg (0.5 mL) subcut WEEKLY #2 mL 07/28/24 09/28/24 Rx subcutaneous pen injector (Trulicity) albuterol sulfate 90 mcg/actuation 2 puff inhalation QID PRN 08/21/24 09/28/24 Rx aerosol inhaler (Ventolin HFA) shortness of breath or wheezing #18 grams rosuvastatin 5 mg tablet (Crestor) 5 mg PO QPM #90 tabs 08/21/24 09/28/24 Rx celecoxib 100 mg capsule (Celebrex) 100 mg PO BID #180 caps 09/25/24 09/28/24 Rx metformin 500 mg tablet,extended 500 mg PO BID #360 tabs 09/25/24 09/28/24 Rx release 24 hr pantoprazole 40 mg tablet,delayed 40 mg PO QAM #90 tabs 09/25/24 09/28/24 Rx release (Protonix) calcium carbonate 600 mg PO DAILY 09/28/24 09/28/24 History duloxetine 30 mg capsule,delayed 30 mg PO QAM 09/28/24 09/28/24 History release duloxetine 60 mg capsule,delayed 60 mg PO QAM 09/28/24 09/28/24 History release hydrochlorothiazide 12.5 mg tablet 12.5 mg PO QAM 09/28/24 09/28/24 History magnesium 250 mg tablet 250 mg PO DAILY 09/28/24 09/28/24 History Patient History Medical History Closed fracture of nasal septum Mechanical fall (trip) in parking lot (10/2021) Fracture of nasal bone with routine healing History of ITP s/p splenectomy Dysphagia History of diverticulosis Difficulty breathing With humidity (reason for inhaler per pt) Denies asthma/COPD hx Hx of sleep apnea No device Hypertension Hyperlipidemia GERD (gastroesophageal reflux disease) Myocardial Infarction 1998 Hyponatremia Nocturia Renal neoplasm Surgical History History of temporal artery biopsy (09/23/22) Left Temporal Artery Biopsy(Left) - Reji St, DO, FACS History of sinus surgery History of esophagogastroduodenoscopy (EGD) History of colonoscopy History of tooth extraction History of tonsillectomy and adenoidectomy History of cardiac cath 1998 ([facility] [place]) > no stents History of cataract surgery R/L History of splenectomy Removed age 18 (r/t bleeding issues) History of cholecystectomy History of gastric surgery krystal-en-Y (2004) Family History Mother Diabetes Coronary heart disease Hypertension Sister Lymphoma in 2021 secondary to leukemia conversion Unknown Bladder cancer Hypertension Grandmother (Maternal) Diabetes Father Unknown family medical history Denies family history of Ovarian cancer Prostate cancer Breast cancer Colorectal cancer Social History Smoking Status: Unknown if ever smoked Tobacco Type: Cigarettes Age Started Using Tobacco: 42; Age Quit Using Tobacco: 44; packs per day: 0.5; Second Hand Exposure: Yes (HX); Do You Dip or Chew Tobacco: No; Hx Alcohol Use: No Hx Substance Use: No Preferred Language: [place] Communication Ability: Effective Visual Impairment: No Limitations Hearing Ability: Normal 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 Beliefs That Will Affect Care: None marital status: Current Living Situation: Alone current occupational status: retired How many Children do You have: 1 Other Information That Helps Us Care for You: No Feels Safe at Home: Yes Safety Concerns: Feels Safe At This Time Childhood Exposure to Second-Hand Smoke: Yes Diet: diabetic caffeine: Yes during the past year weight has: increased > 10 lbs Dental Care, Regularly: No Physical Activity Frequency: 1-2 Times per Week Seatbelt Use: always Sunscreen Use: No Assistive Devices: Cane and Walker Review of Systems Review of Systems: All systems reviewed & are unremarkable except as noted in HPI & below Physical Exam Constitutional: WD/WN, vitals as above Respiratory: normal respiratory effort; no respiratory distress Cardiovascular: RRR, no murmur, no edema Vessels: normal carotid upstroke, femoral pulses present and radial pulses present Extremities: normal capillary refill Gastrointestinal (Abdomen): Inspection/Auscultation: abdomen normal to inspection Neurologic: CN's II-XI intact bilaterally and moves all extremities Psychiatric: A+Ox3, euthymic affect Results & Data Vital Signs (Past 12 Hours) Vital Signs Temp Pulse Pulse Resp BP Pulse Ox O2 Del Method 09/29/24 10:58 36.7 C 65 19 161/80 H 98 Room Air 09/29/24 09:06 71 164/77 H 09/29/24 07:24 36.8 C 78 17 150/72 H 96 Room Air 09/29/24 07:19 81 09/29/24 03:13 36.7 C 71 18 121/70 96 Room Air
[2024-09-29] MEDS: ASPIRIN 81 MG ECTAB PO SCH (13:32)
--- NOTE | 2024-09-29 13:59 | XCELERA ---
[id number]
--- NOTE | 2024-09-29 14:09 | Electroencephalogram ---
EEG Procedure Note Date of Service September 29, 2024 Start / End Times Start Time: 1244 End Time: 1304 Referring Physician diane mcnamara History LOC Home Medication List Medication Instructions Recorded Confirmed Type blood-glucose meter #1 ea 08/05/18 09/28/24 Rx acetaminophen 650 mg 650 mg PO BID PRN Pain 01/06/19 09/28/24 History tablet,extended release cyanocobalamin (vitamin B-12) 1,000 mcg sublingual QAM 01/06/19 09/28/24 History 1,000 mcg sublingual tablet lysine 1,000 mg tablet 1,000 mg PO QAM 01/06/19 09/28/24 History zinc gluconate 50 mg tablet 50 mg PO QAM 01/06/19 09/28/24 History aspirin 81 mg tablet,delayed 81 mg PO HS 07/31/19 09/28/24 History release diphenhydramine HCl 25 mg tablet 25 mg PO DAILY PRN Itching 03/24/21 09/28/24 History (Benadryl Allergy) Nervive Nerve Pain Relief 1 tab PO QAM 05/07/21 09/28/24 History valacyclovir 1 gram tablet See Rx Instructions PO .COMPLEX 05/21/21 09/28/24 Rx #30 tabs coenzyme Q10 75 mg capsule (Ultra 75 mg PO QAM 09/15/22 09/28/24 History CoQ10) pediatric multivitamin no.76 1 tab PO BID 09/16/22 09/28/24 History (Flintstones Complete chewable tablet) mupirocin 2 % topical ointment 1 applic topical BID PRN DRYNESS 09/23/22 09/28/24 History (Centany) polyethylene glycol 3350 17 17 g PO DAILY PRN Constipation 09/23/22 09/28/24 History gram/dose oral powder (Miralax) nitroglycerin 0.4 mg sublingual 0.4 mg sublingual Q5M PRN chest 10/07/23 Rx tablet pain #25 tabs blood sugar diagnostic (OneTouch #100 strips 10/15/23 09/28/24 Rx Ultra Test strips) betamethasone dipropionate 0.05 % 1 applic topical BID PRN itching 11/18/23 09/28/24 Rx topical ointment #45 grams trospium 20 mg tablet 20 mg PO BID #180 tabs 12/23/24 07/31/25 Rx gabapentin 300 mg capsule 300 mg PO TID #270 caps 02/28/24 09/28/24 Rx pilocarpine HCl 5 mg tablet 5 mg PO TID #270 tabs 03/02/24 09/28/24 Rx (Salagen (pilocarpine)) nystatin 100,000 unit/gram topical 1 applic topical TID PRN 04/10/24 09/28/24 Rx powder intertrigo #60 grams linaclotide 290 mcg capsule 290 mcg PO QAM #90 caps 06/01/24 09/28/24 Rx (Linzess) alendronate 70 mg tablet (Fosamax) 70 mg PO DIRECTED #12 tabs 06/29/24 09/28/24 Rx losartan 50 mg tablet 50 mg PO QAM #90 tabs 06/29/24 09/28/24 Rx nifedipine 60 mg tablet,extended 60 mg PO DAILY #90 tabs 06/29/24 09/28/24 Rx release metoprolol tartrate 25 mg tablet 25 mg PO DAILY #90 tabs 07/03/24 09/28/24 Rx dulaglutide 1.5 mg/0.5 mL 1.5 mg (0.5 mL) subcut WEEKLY #2 mL 07/28/24 09/28/24 Rx subcutaneous pen injector (Trulicity) albuterol sulfate 90 mcg/actuation 2 puff inhalation QID PRN 08/21/24 09/28/24 Rx aerosol inhaler (Ventolin HFA) shortness of breath or wheezing #18 grams rosuvastatin 5 mg tablet (Crestor) 5 mg PO QPM #90 tabs 08/21/24 09/28/24 Rx celecoxib 100 mg capsule (Celebrex) 100 mg PO BID #180 caps 09/25/24 09/28/24 Rx metformin 500 mg tablet,extended 500 mg PO BID #360 tabs 09/25/24 09/28/24 Rx release 24 hr pantoprazole 40 mg tablet,delayed 40 mg PO QAM #90 tabs 09/25/24 09/28/24 Rx release (Protonix) calcium carbonate 600 mg PO DAILY 09/28/24 09/28/24 History duloxetine 30 mg capsule,delayed 30 mg PO QAM 09/28/24 09/28/24 History release duloxetine 60 mg capsule,delayed 60 mg PO [facility] 09/28/24 09/28/24 History release hydrochlorothiazide 12.5 mg tablet 12.5 mg PO [facility] 09/28/24 09/28/24 History magnesium 250 mg tablet 250 mg PO DAILY 09/28/24 09/28/24 History Inpatient Medication List Aspirin (Aspirin 81 Mg Ectab) 81 mg PO [facility] Stop: 10/29/24 11:44 Last Admin: 09/29/24 13:32 Dose: 81 mg Documented By: DAVID Cyanocobalamin (Cyanocobalamin (B-12) 500 Mcg Tablet) 1,000 mcg PO [facility] Stop: 10/29/24 08:59 Last Admin: 09/29/24 09:07 Dose: 1,000 mcg Documented By: DAVID Duloxetine HCl (Duloxetine Hcl 30 Mg Cap) 30 mg PO [facility] Stop: 10/29/24 08:59 Last Admin: 09/29/24 09:06 Dose: 30 mg Documented By: DAVID Duloxetine HCl (Duloxetine Hcl 60 Mg Cap) 60 mg PO [facility] Stop: 10/29/24 08:59 Last Admin: 09/29/24 09:10 Dose: 60 mg Documented By: DAVID Gabapentin (Gabapentin 300 Mg Cap) 300 mg PO TID [facility] Stop: 10/28/24 21:18 Last Admin: 09/29/24 13:53 Dose: 300 mg Documented By: Admin: 09/29/24 09:07 Dose: 300 mg Documented By: Admin: 09/28/24 23:19 Dose: 300 mg Documented By: ANTONIO Pantoprazole Sodium (Protonix) 40 mg in 10 mls @ 5 mls/min IV BID [facility] Stop: 10/28/24 21:18 Last Admin: 09/29/24 09:10 Dose: 5 mls/min Documented By: Admin: 09/28/24 23:19 Dose: 5 mls/min Documented By: ANTONIO Insulin Aspart (Insulin Aspart Per Unit Charge) 0 units SC ACHS [facility] Stop: 10/28/24 21:18 Last Admin: 09/29/24 11:36 Dose: Not Given Documented By: Admin: 09/29/24 09:16 Dose: Not Given Documented By: ODao Admin: 09/28/24 23:16 Dose: Not Given Documented By: ANTONIO Linaclotide (Linaclotide 145 Mcg Capsule) 290 mcg PO QAM [facility] Stop: 10/29/24 08:59 Last Admin: 09/29/24 09:09 Dose: 290 mcg Documented By: DAVID Losartan Potassium (Losartan Potassium 50 Mg Tab) 50 mg PO QAM [facility] Stop: 10/29/24 08:59 Last Admin: 09/29/24 09:09 Dose: 50 mg Documented By: DAVID Metoprolol Tartrate (Metoprolol Tartrate 25 Mg Tab) 25 mg PO DAILY [facility] Stop: 10/29/24 08:59 Last Admin: 09/29/24 09:07 Dose: 25 mg Documented By: DAVID Nifedipine (Nifedipine Extended Rel 30 Mg Tabcr) 60 mg PO DAILY [facility] Stop: 10/29/24 08:59 Last Admin: 09/29/24 09:06 Dose: 60 mg Documented By: DAVID Pilocarpine HCl (Pilocarpine Hcl 5 Mg Tablet) 5 mg PO TID [facility] Stop: 10/28/24 21:18 Last Admin: 09/29/24 13:31 Dose: 5 mg Documented By: Admin: 09/29/24 09:09 Dose: 5 mg Documented By: Admin: 09/28/24 23:19 Dose: 5 mg Documented By: ANTONIO Prednisone (Prednisone 50 Mg Tab) 50 mg PO Q8 [facility] Stop: 09/30/24 06:01 Last Admin: 09/29/24 13:53 Dose: 50 mg Documented By: DAVID Rosuvastatin Calcium (Rosuvastatin Calcium 5 Mg Tab) 5 mg PO QPM [facility] Stop: 10/28/24 21:18 Last Admin: 09/28/24 23:19 Dose: 5 mg Documented By: ANTONIO Discontinued Medications Al Hydrox/Mg Hydrox/Simethicone (Aluminum/Magnesium/Simeth (Maalox Max) 30 Ml Udc) 30 ml PO NOW STA Stop: 09/28/24 17:06 Last Admin: 09/28/24 17:32 Dose: 30 ml Documented By: GREGG Pantoprazole Sodium (Protonix) 40 mg in 10 mls @ 5 mls/min IV NOW ONE Stop: 09/28/24 17:06 Last Admin: 09/28/24 17:32 Dose: 5 mls/min Documented By: GREGG Ceftriaxone Sodium (Rocephin) 2,000 mg in 50 mls @ 100 mls/hr IV NOW STA Stop: 09/28/24 20:54 Last Infusion: 09/28/24 23:55 Dose: Infused Documented By: Admin: 09/28/24 23:27 Dose: 100 mls/hr Documented By: ANTONIO Description This is a 21 electrode EEG with a single channel dedicated to limited EKG. The electrodes were placed in accordance with the International 10-20 system. Interpretation This is a 21 electrode EEG with a single channel dedicated to limited EKG. The electrodes were placed in accordance with the International 10-20 system. There is a posterior dominant rhythm of 8 to 9 Hz which is symmetrically distributed and attenuates with eye opening. There is a normal anterior to posterior organization. Photic stimulation: unremarkable Hyperventilation performed: ___ unremarkable; __x not performed. There is no focal slowing. No epileptiform abnormalities. Sleep stage: _x_ not achieved, ___drowsy state, ___ Stage II, ___ REM stage achieved. Interpretation Normal-appearing awake EEG. [facility] EEG Procedure Codes Indication for Procedure (1) Transient alteration of awareness: Neurology Neurology: 49525 EEG include record awake & drowsy
--- NOTE | 2024-09-29 14:30 | Neurology Consultation ---
Date of Consultation September 29, 2024 Assessment & Plan (1) Fainting: History of Present Illness Attending Physician: Lul Sapp MD History of Present Illness S: pt now feeling well. no abnormal movements. MRI brain and EEG normal. MRA noted for rt ICA more than 90% stenosis. pt without focal deficits. pt has brief fainting event and recover without confusion in less than a min. chart reviewed. ED HPI: This is a 79-year-old female with the PMHx of CAD, hypertension, hyperlipidemia, DM2, scleroderma, osteoarthritis, osteopenia, Raynaud's disease and pernicious anemia presenting to [facility] for further evaluation of ongoing weakness and falls at home. Patient is accompanied by family members who provide additional history. patient was recently evaluated in the emergency department on 09/17. Patient was evaluated after fall. She had a scalp laceration was repaired with danielle. Patient states that she needs the danielle removed. She states that she has had 4 falls including a fall today. She states that she does have symptoms prior to falling. Patient states that she has tremors in the right side of her body that caused her to fall. Patient denies any seizure-like activity. Patient does report that she lose consciousness with this. Patient notes that she has had some hematochezia that she describes as mostly just on toilet paper. She denies any melena. Patient states that she feels fatigued and weak. Patient states that she intermittently has issues with vision in the left eye but states this is from a prior cataract surgery. They deny fever or chills. No cough or congestion. Denies chest pain or palpitations. No shortness of breath. They deny abdominal pain, nausea and vomiting. No urinary complaints. No recent changes in bowel movements. Pat stephen denies recent changes in medications or OTC supplements. Patient offers no other complaints, today. Allergies Allergy/AdvReac Type Severity Reaction Status Date / Time latex Allergy Severe Hives Verified 09/28/24 18:13 Iodinated Contrast Media Allergy Intermediate Rash Verified 09/28/24 18:13 ciprofloxacin Allergy Mild Urticaria Verified 09/28/24 18:13 canagliflozin [From Invokana] Allergy Unknown Unknown Verified 09/28/24 18:13 simvastatin AdvReac Intermediate Myalgia Verified 09/28/24 18:13 adhesive AdvReac Mild Redness, Verified 09/28/24 18:13 itchy skin Home Medications Medication Instructions Recorded Confirmed Type blood-glucose meter #1 ea 08/05/18 09/28/24 Rx acetaminophen 650 mg 650 mg PO BID PRN Pain 01/06/19 09/28/24 History tablet,extended release cyanocobalamin (vitamin B-12) 1,000 mcg sublingual QAM 01/06/19 09/28/24 History 1,000 mcg sublingual tablet lysine 1,000 mg tablet 1,000 mg PO QAM 01/06/19 09/28/24 History zinc gluconate 50 mg tablet 50 mg PO QAM 01/06/19 09/28/24 History aspirin 81 mg tablet,delayed 81 mg PO HS 07/31/19 09/28/24 History release diphenhydramine HCl 25 mg tablet 25 mg PO DAILY PRN Itching 03/24/21 09/28/24 History (Benadryl Allergy) Nervive Nerve Pain Relief 1 tab PO QAM 05/07/21 09/28/24 History valacyclovir 1 gram tablet See Rx Instructions PO .COMPLEX 05/21/21 09/28/24 Rx #30 tabs coenzyme Q10 75 mg capsule (Ultra 75 mg PO QAM 09/15/22 09/28/24 History CoQ10) pediatric multivitamin no.76 1 tab PO BID 09/16/22 09/28/24 History (Flintstones Complete chewable tablet) mupirocin 2 % topical ointment 1 applic topical BID PRN DRYNESS 09/23/22 09/28/24 History (Centany) polyethylene glycol 3350 17 17 g PO DAILY PRN Constipation 09/23/22 09/28/24 History gram/dose oral powder (Miralax) nitroglycerin 0.4 mg sublingual 0.4 mg sublingual Q5M PRN chest 10/07/23 09/28/24 Rx tablet pain #25 tabs blood sugar diagnostic (OneTouch #100 strips 10/15/23 09/28/24 Rx Ultra Test strips) betamethasone dipropionate 0.05 % 1 applic topical BID PRN itching 11/18/23 09/28/24 Rx topical ointment #45 grams trospium 20 mg tablet 20 mg PO BID #180 tabs 02/21/24 09/28/24 Rx gabapentin 300 mg capsule 300 mg PO TID #270 caps 02/28/24 09/28/24 Rx pilocarpine HCl 5 mg tablet 5 mg PO TID #270 tabs 03/02/24 09/28/24 Rx (Salagen (pilocarpine)) nystatin 100,000 unit/gram topical 1 applic topical TID PRN 04/10/24 09/28/24 Rx powder intertrigo #60 grams linaclotide 290 mcg capsule 290 mcg PO QAM #90 caps 06/01/24 09/28/24 Rx (Linzess) alendronate 70 mg tablet (Fosamax) 70 mg PO DIRECTED #12 tabs 06/29/24 09/28/24 Rx losartan 50 mg tablet 50 mg PO QAM #90 tabs 06/29/24 09/28/24 Rx nifedipine 60 mg tablet,extended 60 mg PO DAILY #90 tabs 06/29/24 09/28/24 Rx release metoprolol tartrate 25 mg tablet 25 mg PO DAILY #90 tabs 07/03/24 09/28/24 Rx dulaglutide 1.5 mg/0.5 mL 1.5 mg (0.5 mL) subcut WEEKLY #2 mL 07/28/24 09/28/24 Rx subcutaneous pen injector (Trulicity) albuterol sulfate 90 mcg/actuation 2 puff inhalation QID PRN 08/21/24 09/28/24 Rx aerosol inhaler (Ventolin HFA) shortness of breath or wheezing #18 grams rosuvastatin 5 mg tablet (Crestor) 5 mg PO QPM #90 tabs 08/21/24 09/28/24 Rx celecoxib 100 mg capsule (Celebrex) 100 mg PO BID #180 caps 09/25/24 09/28/24 Rx metformin 500 mg tablet,extended 500 mg PO BID #360 tabs 09/25/24 09/28/24 Rx release 24 hr pantoprazole 40 mg tablet,delayed 40 mg PO QAM #90 tabs 09/25/24 09/28/24 Rx release (Protonix) calcium carbonate 600 mg PO DAILY 09/28/24 09/28/24 History duloxetine 30 mg capsule,delayed 30 mg PO QAM 09/28/24 09/28/24 History release duloxetine 60 mg capsule,delayed 60 mg PO QAM 09/28/24 09/28/24 History release hydrochlorothiazide 12.5 mg tablet 12.5 mg PO QAM 09/28/24 09/28/24 History magnesium 250 mg tablet 250 mg PO DAILY 09/28/24 09/28/24 History Patient History Medical History Closed fracture of nasal septum Mechanical fall (trip) in parking lot (10/2021) Fracture of nasal bone with routine healing History of ITP s/p splenectomy Dysphagia History of diverticulosis Difficulty breathing With humidity (reason for inhaler per pt) Denies asthma/COPD hx Hx of sleep apnea No device Hypertension Hyperlipidemia GERD (gastroesophageal reflux disease) Myocardial Infarction 1998 Hyponatremia Nocturia Renal neoplasm Surgical History History of temporal artery biopsy (09/23/22) Left Temporal Artery Biopsy(Left) - Reji St, DO, FACS History of sinus surgery History of esophagogastroduodenoscopy (EGD) History of colonoscopy History of tooth extraction History of tonsillectomy and adenoidectomy History of cardiac cath 1998 ([facility] [place]) > no stents History of cataract surgery R/L History of splenectomy Removed age 18 (r/t bleeding issues) History of cholecystectomy History of gastric surgery krystal-en-Y (2004) Family History Mother Diabetes Coronary heart disease Hypertension Sister Lymphoma in 2021 secondary to leukemia conversion Unknown Bladder cancer Hypertension Grandmother (Maternal) Diabetes Father Unknown family medical history Denies family history of Ovarian cancer Prostate cancer Breast cancer Colorectal cancer Social History Smoking Status: Unknown if ever smoked Tobacco Type: Cigarettes Age Started Using Tobacco: 42; Age Quit Using Tobacco: 44; packs per day: 0.5; Second Hand Exposure: Yes (HX); Do You Dip or Chew Tobacco: No; Hx Alcohol Use: No Hx Substance Use: No Preferred Language: Lao Communication Ability: Effective Visual Impairment: No Limitations Hearing Ability: Normal Dog Show Judge Required: No Beliefs That Will Affect Care: None marital status: Current Living Situation: Alone current occupational status: retired How many Children do You have: 1 Other Information That Helps Us Care for You: No Feels Safe at Home: Yes Safety Concerns: Feels Safe At This Time Childhood Exposure to Second-Hand Smoke: Yes Diet: diabetic caffeine: Yes during the past year weight has: increased > 10 lbs Dental Care, Regularly: No Physical Activity Frequency: 1-2 Times per Week Seatbelt Use: always Sunscreen Use: No Assistive Devices: Other Exam (Neuro) Physical Exam: HEENT: normocephalic grossly Neuro: Mental: AOx4, fluent speech, normal comprehension, no apraxia, no L/R confusion, no neglect CN: PERRL, Full EOM, symmetric face, midline T/U/P Motor: No abnormal movements, normal tone, 5/5 t/o bilaterally Sens: intact to touch b/l grossly Coord: intact FNT b/l DTR: 1+ sym b/l Impression: 79 yo female with fainting event in setting of worsening anemia with declining Hemoglobin and episodic bradycardia and recurrent (worsening) UTI. EEG and mri brain negative. left ICA stenosis. the events appears to be cardiogenic in nature. Recommendations: no further neuro work up needed. avoid hypotension and close monitoring for bradycardia/heart block tx UTI avoid dehydration and sudden position change. likely need briar wood sorter cardiac monitoring will defer left ICA tx to vascular surgery need to find the cause for worsening hemoglobin level and including GI bleed etc. I do not feel she needs immediate left ICA intervention, as she has obvious several causes for fainting events that is not addressed yet. will sign off. Chart reviewed I have spent more than 50% educating patient about potential diagnosis and neurological evaluation and coordinating care with patient's treatment team. Total time spent (including chart review and coordination of care): 45 min (this includes chart review). Results & Data Vital Signs (Past 12 Hours) Vital Signs Temp Pulse Pulse Resp BP Pulse Ox O2 Del Method 09/29/24 13:38 68 09/29/24 10:58 36.7 C 65 19 161/80 H 98 Room Air 09/29/24 09:06 71 164/77 H 09/29/24 07:24 36.8 C 78 17 150/72 H 96 Room Air 09/29/24 07:19 81 09/29/24 03:13 36.7 C 71 18 121/70 96 Room Air PG Care Time/CCT Total # of Minutes Spent Total Time Spent with Patient: Total time spent is greater than 50% in coordination of care (as documented) at patient's floor/unit and/or counseling patient: Coding Level of Care Code 27785 IN/OBS CONSULT LVL 3,45M Diagnoses Syncope, unspecified syncope type R55 Syncope type: unspecified (1) Fainting Syncope type: unspecified Qualified Code(s): R55 - Syncope and collapse
[2024-09-29] MEDS: cefTRIAXone SODIUM 2,000 MG/50 ML BAG IV SCH (21:16)
[2024-09-30] MEDS: diphenhydrAMINE Capsule 25 MG CAP PO ONE (05:36)
[2024-09-30] MEDS: FAMOTIDINE 20 MG TAB PO ONE (05:36)
--- NOTE | 2024-09-30 05:53 | Electrocardiogram Report ---
Test Reason : Blood Pressure : */* mmHG Vent. Rate : 66 BPM Atrial Rate : 66 BPM P-R Int : 204 ms QRS Dur : 58 ms QT Int : 398 ms P-R-T Axes : 79 20 17 degrees QTcB Int : 417 ms Sinus rhythm with Premature supraventricular complexes Low voltage QRS Borderline ECG When compared with ECG of 17-Sep-2022 07:47, Premature supraventricular complexes are now Present Confirmed by Alberto Flores ([id number]) on 09/30/2024 5:53:04 AM Referred By: Confirmed By: Alberto Flores
[2024-09-30 06:22] LABS: Hematocrit (blood only) 24.0 % (37.0-47.0); Hemoglobin 8.4 g/dl (12.0-16.0); Mean Corpuscular Hemoglobin 30.0 pg (25.0-34.0); Mean Corpuscular Volume 85.7 fL (80.0-100.0); Platelet Count 457 K/uL (130-400); RDW Standard Deviation 44.2 fL (36.4-46.3); Red Blood Count 2.80 M/uL (4.20-5.40); White Blood Count 11.67 K/ul (4.8-10.8)
[2024-09-30 06:40] LABS: Anion Gap 7.0 (3-11); Blood Urea Nitrogen 21.0 mg/dl (6-23); Calcium 8.7 mg/dl (8.6-10.3); Carbon Dioxide 25.0 mmol/L (21-32); Chloride 102.0 mmol/L (98-107); Creatinine Clr Calc Pharmacy 52.1 ml/min; Glucose 175.0 mg/dl (70-99(Fasting)); Potassium 4.2 mmol/L (3.5-5.1); Sodium 134.0 mmol/L (136-145)
[2024-09-30] MEDS: OPTIRAY 320 125ml IV ONE (07:16)
[2024-09-30 07:19] LABS: Hemoglobin A1C 5.6 % (4.5-5.6)
[2024-09-30 07:22] VITALS: RESP 18
--- NOTE | 2024-09-30 07:39 | CT Scan Report ---
EXAM: CT angio neck with con CLINICAL HISTORY: L ICA stenosis TECHNIQUE: Contrast enhanced thin slice CT angiography scan of the carotid vessels was performed with intravenous contrast. Angiographic images were processed, 3D MIP images were acquired for interpretation.Contiguous axial images were obtained. Reformatted coronal and sagittal images were also reviewed. If IV contrast material had not been administered, the likelihood of detecting abnormalities relevant to the patients condition would have been substantially decreased. CT scan was performed according to ALARA (as low as reasonable achievable). COMPARISON: None. FINDINGS: Hypodense filling defect is noted involving mid - distal part of left common carotid artery, left carotid bulb extending up to entire course of left internal carotid artery ( intracranial and extracranial segments)- suggestive of thrombosis. Atherosclerotic calcifications are noted involving right carotid bulb, causes 10%-15% luminal narrowing. Atherosclerotic calcifications are noted involving left carotid bulb, causes 85%-90% luminal narrowing. Included great vessels of the aortic arch are grossly unremarkable. Right Common carotid artery, right carotid Bulb, right internal carotid artery , and origin of the external carotid artery are well opacified. Left external carotid artery is opacified. Vertebral arteries are well opacified. Jugular veins are well opacified. Included lung apices are grossly unremarkable. Approximately 38 x 28 mm sized heterogeneously enhancing soft tissue density lesion is noted involving left lobe of thyroid, abuts the left side of esophagus causes its right side displacement. IMPRESSION: Hypodense filling defect is noted involving mid - distal part of left common carotid artery, left carotid bulb, extending up to entire course of left internal carotid artery ( intracranial and extracranial segments)- suggestive of thrombosis. Atherosclerotic calcifications are noted involving right carotid bulb, causes 10%-15% luminal narrowing. Atherosclerotic calcifications are noted involving left carotid bulb, causes 85%-90% luminal narrowing. Electronically signed by Abel Clark 09-30-2024 07:39 AM
[2024-09-30] MEDS: ACETAMINOPHEN 325 MG TAB PO PRN (08:40)
[2024-09-30] MEDS: FOLIC ACID 1 MG TAB PO SCH (09:42)
[2024-09-30] MEDS: HEPARIN 25000 UNIT/500 ML D5W 25,000 UNITS/500 ML BAG IV SCH (09:43)
[2024-09-30] MEDS: HEPARIN SOD (PORCINE) 1000 UNIT/ML IV ONE (09:43)
[2024-09-30] MEDS: Heparin IV Adult Wt-Based Standard w/ INITIAL Bolus Protocol IV SCH (10:18)
--- NOTE | 2024-09-30 11:01 | Hospitalist Progress Note ---
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 Falls/syncope were preceded by a sensory disturbance of the right head/right scalp along with right arm "shakes." Orthostatic BPs were negative in the ER at presentation. #recurrent syncopal events leading to falls - -I do believe patient loses consciousness which then is followed by falls -she has a well-documented history of numerous falls over the years some of which have led to significant injuries including the recent scalp laceration -extensive work-up showed the following: -MRI brain - no stroke -EEG - neg for seizure focus -tele - no pauses, AV block, or arrhythmia seen -echo - no source of thrombus, no valvular disease, nothing that would cause syncope; No PFO/shunt -no hypoglycemia to date -orthostatic BPs negative -MRA neck and carotid duplex study both showed high-grade LEFT ICA stenosis -CTA neck this morning with extensive thrombosis of nearly the entire LEFT ICA -given her symptoms and lack of finding anything else that would have been precipitating her events I am suspicious the severe left ICA stenosis/thrombosis was causing TIA-like events with right-sided symptoms -certainly the anemia can make someone tired but her BPs have not been low and she is not orthostatic thus the anemia is unlikely to be the culprit -consulted Dr Lopez from vascular surgery; he was made aware today of the CTA neck findings; no surgery needed; he advises systemic anticoagulation; will start with heparin drip/bolus then ultimately PO Eliquis -consulted Dr Navarrete from neurology for his opinion on these events/episodes -appreciate both consultants & their recommendations #left-sided ICA stenosis - -MRA neck, CTA neck, and carotid duplex study all c/w severe ICA stenosis on left -CTA neck today with thrombosis of nearly the entire carotid - acute/subacute? -again Dr Lopez aware and he advises systemic anticoagulation -start heparin drip w/ bolus; then ultimately Eliquis -cont statin (of note - all LDLs going back a long time have been <75 -- defer on repeat lipids while here) -appreciate vascular surgery consult -cont asa low-dose -etiology of the thrombosis?? -I corresponded with [facility] [place], who has seen Ms Mccloud in clinic for CREST-variant scleroderma -typically this does not cause arterial thrombosis -anti-phospholipid Ab syndrome and lupus anticoagulation - perhaps homocysteine level as well - should be checked -will need to check cost of Eliquis #acute blood loss anemia - -Hb 11.2 on 09/17, then 8.2 on 09/28 -Hb today is 8.4 - thus Hb is stable -no signs/symptoms of active bleeding from any location -although she has seen some minor BRB with wiping at home, it sounds as if she had significant blood loss with her scalp laceration earlier in August, and that was the most likely culprit for the ABLA we are seeing -with that said she also reports "dark" stools -my suspicion for acute GI bleed is low but reasonable to continue PPI -recheck CBC am -check fecal occult blood -Fe studies are c/w Fe def anemia suggesting there is a chronic component to her anemia as well -will give dose of venofer tomorrow -B12 level in April was >1500 -folate is low-normal; thus, start folic acid 1mg daily x 30 days -check a homocysteine level tomorrow #right scalp/head sensory disturbance with arm shaking - -see discussion above -etiology? TIAs?? -other? #HTN - -cont metoprolol, nifedipine, losartan -hold diuretic -BPs had been high at admission; now improved #Hyperlipidemia - -CPK wnl -cont crestor -cont aspirin #h/o CAD - -1998 - acute ND; s/p cath, no stents or intervention needed -does not follow with cardiology -minimal trop elevation - likely demand ischemia; ACS not suspected -echo with preserved EF and normal LV wall motion -metoprolol, statin, aspirin #T2DM - -last a1c was 5.5% in April; a1c this admission 5.6% -hold home meds including metformin -could patient be having hypoglycemia causing some of her falls ?? -thus far no hypoglycemia to date, however #h/o CREST syndrome variant of Scleroderma #h/o lymphoma? - -old chart reviewed in detail; patient was suspected as having a form of leukemia years ago -saw Dr Gerardo Alexander at cancer clinic here; this was RULED OUT -flow cytometry, peripheral smear, etc were all normal #h/o B12 deficiency - -last B12 level robust - >1500 - in April 2024 #recurrent e.coli UTIs - -just completed 3 day course of abx recently for e.coli -u/a suggestive of ongoing UTI; sent culture, grew contaminants -with ongoing UTI symptoms and mild leukocytosis will cont antibiotics -s/p rocephin x 2 doses; complete course with keflex 500mg BID x 5 days -not clearing UTIs due to kidney stone? asplenic state? other? #asplenic state - -s/p splenectomy due to prior ITP years ago -platelets are wnl #DVT proph - -heparin drip left message for pt's daughter on her voicemail 09/29/24 care d/w Dr Lopez via [facility] correspondence PT, OT corky appreciated - cleared for home Admission and Anticipated Discharge Date Admission Date: September 28, 2024 Subjective tele overnight wnl no falls, no presyncope or syncope, no episodes of right facial/head numbness, no right arm "shaking" she completed prednisone x 3 doses and underwent uneventful CTA neck which appears to show extensive thrombosis of the majority of the left ICA I corresponded with Dr Lopez and made him aware of CTA results no surgery needed but will need anticoagulation heparin drip initiated patient is overall feeling good eating/drinking well denies any other new complaints Review of Systems Review of Systems: CV - no chest pain, no orthopnea pulm - no dyspnea GI - no abd pain or N/V Physical Exam Physical Exam: gen - sitting in chair, NAD, looks well; eating her meal neck - no JVD mouth - MMM face - no droop heart - RRR, s1 s2, no murmur lungs - CTA b/l abd - soft NT ND BS+ ext - pulses b/l feet 2+ neuro - strength 5/5 x 4 exts Results & Data Results & Data Vital Signs (Past 12 Hours) Vital Signs Temp Pulse Pulse Resp BP Pulse Ox O2 Del Method 09/30/24 07:46 76 09/30/24 07:22 36.4 C L 82 18 159/78 H 09/30/24 03:27 36.6 C 69 16 112/69 97 Room Air 09/29/24 23:06 36.6 C 70 16 115/67 97 Room Air Laboratory Results Laboratory Results - last 24 hr 09/29/24 09/29/24 09/29/24 11:25 16:14 20:19 WBC RBC Hgb Hct MCV MCH MCHC RDW Std Deviation RDW Coeff of Charles Plt Count MPV Sodium Potassium Chloride Carbon Dioxide Anion Gap BUN Creatinine Est Cr Clr Drug Dosing eGFR BUN/Creatinine Ratio Glucose POC Glucose 137 H 169 H 244 H Estimat Average Glucose Hemoglobin A1c Calcium Folate 09/30/24 09/30/24 05:44 07:19 WBC 11.67 H RBC 2.80 L Hgb 8.4 L Hct 24.0 L MCV 85.7 MCH 30.0 MCHC 35.0 RDW Std Deviation 44.2 RDW Coeff of Charles 14.2 Plt Count 457 H MPV 9.3 L Sodium 134 L Potassium 4.2 Chloride 102 Carbon Dioxide 25 Anion Gap 7 BUN 21 Creatinine 0.84 Est Cr Clr Drug Dosing 52.1 eGFR 70.64 BUN/Creatinine Ratio 25.0 H Glucose 175 H POC Glucose 169 H Estimat Average Glucose 114 Hemoglobin A1c 5.6 Calcium 8.7 Folate 6.49 Diagnostic Findings Carotid Doppler Study 09/29/24 06:24 CAROTID ARTERY ULTRASOUND CLINICAL HISTORY: L ICA stenosis - severe/critical? COMPARISON STUDY: MRA of 09/28/2024 and ultrasound of 02/01/2020 TECHNIQUE: Real-time, grayscale, and color Doppler sonography of the carotid and vertebral arteries was performed. Images were viewed in the transverse and longitudinal planes. FINDINGS: There is coarse plaque at the proximal aspect of the left internal carotid artery. There is abnormally increased velocity of 418 cm/s proximally at the left internal carotid artery and the ICA to CCA ratio on the left is 19. This is consistent with greater than 90% stenosis. No other evidence of significant stenosis seen at the common carotid arteries bi laterally or the right internal carotid artery. There is moderate stenosis at the origin of the right external carotid artery. There is antegrade flow in the vertebral arteries bilaterally. IMPRESSION: Greater than 90% stenosis proximal left internal carotid artery. ACT 112: Positive. There are findings on this exam that require communication between the performing entity and the patient following Patient Test Result Information Act ([place] Act 112) guidelines. Electronically signed by: Reji Diaz M.D. 09/29/2024 11:26 AM Neck CTA 09/30/24 07:00 EXAM: CT angio neck with con CLINICAL HISTORY: L ICA stenosis TECHNIQUE: Contrast enhanced thin slice CT angiography scan of the carotid vessels was performed with intravenous contrast. Angiographic images were processed, 3D MIP images were acquired for interpretation.Contiguous axial images were obtained. Reformatted coronal and sagittal images were also reviewed. If IV contrast material had not been administered, the likelihood of detecting abnormalities relevant to the patients condition would have been substantially decreased. CT scan was performed according to ALARA (as low as reasonable achievable). COMPARISON: None. FINDINGS: Hypodense filling defect is noted involving mid - distal part of left common carotid artery, left carotid bulb extending up to entire course of left internal carotid artery ( intracranial and extracranial segments)- suggestive of thrombosis. Atherosclerotic calcifications are noted involving right carotid bulb, causes 10%-15% luminal narrowing. Atherosclerotic calcifications are noted involving left carotid bulb, causes 85%-90% luminal narrowing. Included great vessels of the aortic arch are grossly unremarkable. Right Common carotid artery, right carotid Bulb, right internal carotid artery , and origin of the external carotid artery are well opacified. Left external carotid artery is opacified. Vertebral arteries are well opacified. Jugular veins are well opacified. Included lung apices are grossly unremarkable. Approximately 38 x 28 mm sized heterogeneously enhancing soft tissue density lesion is noted involving left lobe of thyroid, abuts the left side of esophagus causes its right side displacement. IMPRESSION: Hypodense filling defect is noted involving mid - distal part of left common carotid artery, left carotid bulb, extending up to entire course of left internal carotid artery ( intracranial and extracranial segments)- suggestive of thrombosis. Atherosclerotic calcifications are noted involving right carotid bulb, causes 10%-15% luminal narrowing. Atherosclerotic calcifications are noted involving left carotid bulb, causes 85%-90% luminal narrowing. Electronically signed by Abel Clark 09-30-2024 07:39 AM PG Care Time/CCT Total # of Minutes Spent Total Time Spent with Patient: Total time spent is greater than 50% in coordination of care (as documented) at patient's floor/unit and/or counseling patient: Coding Level of Care Code 96839 SUB INP/OBS CARE 3/50MIN Diagnoses Stenosis of left internal carotid artery I65.22 Recurrent falls R29.6 Acute blood loss anemia D62 Hematoma of parietal scalp S00.03XA Scalp laceration S01.01XA Encounter type: initial encounter Coronary artery disease involving [place] coronary artery of [place] heart without angina pectoris I25.10 Associated angina: without angina Coronary Disease-Associated Artery/Lesion type: [place] artery [place] vs. transplanted heart: [place] heart CREST variant of scleroderma M34.1 Diabetes mellitus type 2 with neurological manifestations E11.49 Gastroesophageal reflux disease without esophagitis K21.9 Esophagitis presence: without esophagitis Hypercholesterolemia E78.00 Primary hypertension I10 Hypertension type: primary hypertension Hyponatremia E87.1 History of ITP Z86.2 Acquired asplenia Z90.81 Recurrent UTI N39.0 (5) Scalp laceration Encounter type: initial encounter Qualified Code(s): S01.01XA - Laceration without foreign body of scalp, initial encounter (6) CAD (coronary artery disease) Associated angina: without angina Coronary Disease-Associated Artery/Lesion type: [place] artery [place] vs. transplanted heart: [place] heart Qualified Code(s): I25.10 - Atherosclerotic heart disease of [place] coronary artery without angina pectoris (9) Gastroesophageal reflux disease Esophagitis presence: without esophagitis Qualified Code(s): K21.9 - Gastro- esophageal reflux disease without esophagitis (11) Hypertension Hypertension type: primary hypertension Qualified Code(s): I10 - Essential (primary) hypertension
[2024-09-30] MEDS: HYDROCORTISONE HC 2.5% CRM 30GM TUBE EXT SCH (11:44)
[2024-09-30 17:59] LABS: ANTI-Xa, UFH(UnfractionatedHep 0.75 IU/ml (0.3-0.7)
[2024-10-01 00:30] LABS: ANTI-Xa, UFH(UnfractionatedHep 0.65 IU/ml (0.3-0.7)
[2024-10-01 06:28] LABS: Hematocrit (blood only) 24.5 % (37.0-47.0); Hemoglobin 8.4 g/dl (12.0-16.0); Mean Corpuscular Hemoglobin 29.7 pg (25.0-34.0); Mean Corpuscular Volume 86.6 fL (80.0-100.0); Platelet Count 448 K/uL (130-400); RDW Standard Deviation 46.0 fL (36.4-46.3); Red Blood Count 2.83 M/uL (4.20-5.40); White Blood Count 19.01 K/ul (4.8-10.8)
[2024-10-01 07:03] LABS: Anion Gap 8.0 (3-11); Blood Urea Nitrogen 29.0 mg/dl (6-23); Calcium 8.5 mg/dl (8.6-10.3); Carbon Dioxide 27.0 mmol/L (21-32); Chloride 102.0 mmol/L (98-107); Creatinine Clr Calc Pharmacy 49.1 ml/min; Glucose 117.0 mg/dl (70-99(Fasting)); Magnesium 2.2 mg/dl (1.7-2.4); Potassium 4.1 mmol/L (3.5-5.1); Sodium 137.0 mmol/L (136-145)
[2024-10-01] MEDS: IRON SUCROSE 300 MG in SODIUM CHLORIDE 0.9% 250 ML IV ONE (08:42)
[2024-10-01] MEDS: SENNA 8.6 MG TAB PO SCH (08:43)
[2024-10-01] MEDS: POLYETHYLENE (MIRALAX) 17 GM PACK PO SCH (08:45)
[2024-10-01 11:25] VITALS: TEMP 97.5; O2SAT 94
[2024-10-01] MEDS: HYDROCODONE/ACETAMOPHEN 5/325MG TAB PO PRN (11:58)
[2024-10-01] MEDS: APIXABAN 5 MG TABLET PO SCH (11:58)
--- NOTE | 2024-10-01 13:48 | CT Scan Report ---
CT SCAN OF THE BRAIN WITHOUT IV CONTRAST CLINICAL HISTORY: Headache. COMPARISON STUDY: CT and MRI of the brain dated 09/28/2024. TECHNIQUE: Unenhanced axial CT scan of the brain is performed from the vertex to the skull base. Imag es are reviewed in the axial, sagittal, coronal planes. A dose lowering technique was utilized adheri ng to the principles of ALARA. CT DOSE: 547.75 mGy.cm FINDINGS: Brain parenchyma: There is acute subdural hemorrhage along the midline falx, the left convexity, and the left tentorium cerebelli which is new from the 09/28/2024 examinations. Blood along the midline fa lx measures up to 5 mm in diameter. Blood products along the left convexity measuring up to 8 mm in d iameter and mildly efface the subjacent cortical sulci. Blood products along the left tentorium cereb xavier measure up to 12 mm in diameter. No blood pressure clearly seen on the right convexity. There is age-related involutional change noting mild subcortical and periventricular microangiopathic disease . No parenchymal hematoma is seen. There is no midline shift or evidence of acute territorial ischemi a by CT criteria. Mccloud-white matter differentiation is preserved. Ventricles, sulci, cisterns: Prominent secondary to involutional change. Intracranial vasculature: There is atherosclerotic calcification of the cavernous carotid and vertebr al arteries. Calvarium: Unremarkable. Soft tissues: There is a right posterior scalp hematoma. Sinuses and mastoids: There is subtotal opacification of the left maxillary antrum. This has increase d from previous. Trace fluid seen within the posterior left ethmoid sinuses. The remaining visualized paranasal sinuses are clear. The mastoid air cells are well pneumatized. Orbits: The bony orbits are grossly intact. There are bilateral ocular lens implants. IMPRESSION: 1. There are acute subdural hemorrhages along the left aspect of the midline falx, the left convexity and the left tentorium cerebelli which is new from 09/28/2024. 2. There is mild mass effect with effacement of the subjacent left-sided cortical sulci. 3. There is no midline shift or evidence of acute territorial ischemia by CT criteria. 4. Right posterior frontal scalp hematoma. Findings were reported to Dr. Sapp at the time of interpretation. ACT 112: Negative or not required by law. Electronically signed by: Mayank Marquez M.D. 10/01/2024 1:46 PM
[2024-10-01] MEDS: KCENTRA (500unit vial) 2000 units IVP IV ONE (14:19)
--- NOTE | 2024-10-01 14:24 | Discharge Summary ---
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 Falls/syncope were preceded by a sensory disturbance of the right head/right scalp along with right arm "shakes." Orthostatic BPs were negative in the ER at presentation. #recurrent syncopal events leading to falls - -I do believe patient loses consciousness which then is followed by falls -she has a well-documented history of numerous falls over the years some of which have led to significant injuries including the recent scalp laceration -extensive work-up showed the following: -MRI brain - no stroke -EEG - neg for seizure focus -tele - no pauses, AV block, or arrhythmia seen -echo - no source of thrombus, no valvular disease, nothing that would cause syncope; No PFO/shunt -no hypoglycemia to date -orthostatic BPs negative -MRA neck and carotid duplex study both showed high-grade LEFT ICA stenosis -CTA neck this morning with extensive thrombosis of nearly the entire LEFT ICA -given her symptoms and lack of finding anything else that would have been precipitating her events I am suspicious the severe left ICA stenosis/thrombosis was causing TIA-like events with right-sided symptoms -certainly the anemia can make someone tired but her BPs have not been low and she is not orthostatic thus the anemia is unlikely to be the culprit -consulted Dr Lopez from vascular surgery; he was made aware today of the CTA neck findings; no surgery needed; he advises systemic anticoagulation; will start with heparin drip/bolus then ultimately PO Eliquis -consulted Dr Navarrete from neurology for his opinion on these events/episodes -appreciate both consultants & their recommendations #left-sided ICA stenosis - -MRA neck, CTA neck, and carotid duplex study all c/w severe ICA stenosis on left -CTA neck today with thrombosis of nearly the entire carotid - acute/s ubacute? -again Dr Lopez aware and he advises systemic anticoagulation -start heparin drip w/ bolus; then ultimately Eliquis -cont statin (of note - all LDLs going back a long time have been <75 -- defer on repeat lipids while here) -appreciate vascular surgery consult -cont asa low-dose -etiology of the thrombosis?? -I corresponded with [facility] Rheum, Dr Quinn, who has seen Ms Mccloud in clinic f or CREST-variant scleroderma -typically this does not cause arterial thrombosis -anti-phospholipid Ab syndrome and lupus anticoagulation - perhaps homocysteine level as well - should be checked -will need to check cost of Eliquis #acute blood loss anemia - -Hb 11.2 on 09/17, then 8.2 on 09/28 -Hb today is 8.4 - thus Hb is stable -no signs/symptoms of active bleeding from any location -although she has seen some minor BRB with wiping at home, it sounds as if she had significant blood loss with her scalp laceration earlier in August, and that was the most likely culprit for the ABLA we are seeing -with that said she also reports "dark" stools -my suspicion for acute GI bleed is low but reasonable to continue PPI -recheck CBC am -check fecal occult blood -Fe studies are c/w Fe def anemia suggesting there is a chronic component to her anemia as well -will give dose of venofer tomorrow -B12 level in April was >1500 -folate is low-normal; thus, start folic acid 1mg daily x 30 days -check a homocysteine level tomorrow #right scalp/head sensory disturbance with arm shaking - -see discussion above -etiology? TIAs?? -other? #HTN - -cont metoprolol, nifedipine, losartan -hold diuretic -BPs had been high at admission; now improved #Hyperlipidemia - -CPK wnl -cont crestor -cont aspirin #h/o CAD - -1998 - acute FL; s/p cath, no stents or intervention needed -does not follow with cardiology -minimal trop elevation - likely demand ischemia; ACS not suspected -echo with preserved EF and normal LV wall motion -metoprolol, statin, aspirin #T2DM - -last a1c was 5.5% in April; a1c this admission 5.6% -hold home meds including metformin -could patient be having hypoglycemia causing some of her falls ?? -thus far no hypoglycemia to date, however #h/o CREST syndrome variant of Scleroderma #h/o lymphoma? - -old chart reviewed in detail; patient was suspected as having a form of leukemia years ago -saw Dr Gerardo Alexander at cancer clinic here; this was RULED OUT -flow cytometry, peripheral smear, etc were all normal #h/o B12 deficiency - -last B12 level robust - >1500 - in April 2024 #recurrent e.coli UTIs - -just completed 3 day course of abx recently for e.coli -u/a suggestive of ongoing UTI; sent culture, grew contaminants -with ongoing UTI symptoms and mild leukocytosis will cont antibiotics -s/p rocephin x 2 doses; complete course with keflex 500mg BID x 5 days -not clearing UTIs due to kidney stone? asplenic state? other? #asplenic state - -s/p splenectomy due to prior ITP years ago -platelets are wnl #DVT proph - -heparin drip left message for pt's daughter on her voicemail 09/29/24 care d/w Dr Lopez via [place] correspondence PT, HAY fried appreciated - cleared for home Admission HPI Per Admitting Provider Pleasant 79yo female with history of CAD s/p FL 1998 (no stents or intervention by report, however), T2DM, asplenic state due to prior ITP, recurrent UTIs, GERD, CREST-variant of scleroderma, HTN, hyperlipidemia, h/o lymphoma, vitamin B12 deficiency, and numerous falls over the last several years including about 5 falls in the last 2 weeks presents with another fall suffered at home today. Patient was walking through her kitchen when she developed right arm shaking, then a numbness sensation on the right side of her scalp near the right faith/right ear/below the ear, followed by "just going out." The next thing she knew she was on the floor. She does not remember what happened after she developed the numbness sensation on the right side of the head. She simply woke up on the floor. Her other falls recently have been quite similar. She has the right arm shakes (never the right leg), followed by the sensory disturbance of the right head, and simply passes out. She does not have left arm or left leg or left facial symptoms. Denies focal weakness of any limb. She does have generalized weakness - especially both legs - over the last few weeks. She has had increasing fatigue in the last several weeks as well. On 09/17 she had a severe fall outside on a concrete sidewalk. She had similar symptoms prior to that fall much like today's event. She struck the back of her head and was brought to the ER for laceration repair. She lost a considerable amount of blood from that laceration. It required staple repair. On 09/18 she had a fall at her home that was witnessed by one of her friends. Apparently the patient's eyes "rolled back in her head" right before she fell to the floor. In the ER today the ER physician removed the danielle from the posterior scalp. There is slight dehiscence of the wound but it is minor. Patient denies any headaches. Denies chest pain or dyspnea associated with her events/falls. Denies vertigo. Denies visual changes. Finally, patient mentions occasional bright red blood per rectum - typically ONLY with wiping. Has h/o hemorrhoids. Discharge Exam gen - sitting in chair, NAD, looks well; eating her meal neck - no JVD mouth - MMM face - no droop heart - RRR, s1 s2, no murmur lungs - CTA b/l abd - soft NT ND BS+ ext - pulses b/l feet 2+ neuro - strength 5/5 x 4 exts Discharge Plan Discharge Items Reason For Visit: SYNCOPE,FALLS Follow-up/Referrals: Markel Rodrigues MD [Primary Care Provider] - Medications and DC Order Prescriptions: New Eliquis 5 mg tablet 5 mg PO .BID as directed Qty: 70 0RF Rx Instructions: take 2 tabs PO BID x 7 days, then 1 tab PO BID thereafter. No Action (DME) blood-glucose meter kit See Dose Instructions .ROUTE .MEDSUPPLY Qty: 1 0RF Dose Instruction: As directed Rx Instructions: As directed Nervive Nerve Pain Relief 1 tab PO QAM valacyclovir 1 gram tablet See Rx Instructions PO .COMPLEX Qty: 30 5RF Patient Comments: NOT CURRENTLY TAKING Rx Instructions: Take 2 tablets at first sign of cold sore eruption. Repeat in 12 hours then stop. PO ; (DME) OneTouch Ultra Test Strip See Rx Instructions .ROUTE .COMPLEX Qty: 100 3RF Dose Instruction: DIRECTED TWICE A DAY Rx Instructions: DIRECTED TWICE A DAY trospium 20 mg tablet 20 mg PO BID Qty: 180 3RF Rx Instructions: administer on an empty stomach gabapentin 300 mg capsule 300 mg PO TID Qty: 270 3RF pilocarpine HCl [Salagen (pilocarpine)] 5 mg tablet 5 mg PO TID Qty: 270 3RF nystatin 100,000 unit/gram powder 1 applic TOP TID PRN (Reason: intertrigo) Qty: 60 4RF alendronate [Fosamax] 70 mg tablet 70 mg PO DIRECTED Qty: 12 3RF Rx Instructions: 70 mg PO once weekly; Take with full glass of water on an empty stomach. Remain upright and wait 40 minutes before eating/drinking losartan 50 mg tablet 50 mg PO QAM Qty: 90 3RF nifedipine 60 mg tablet extended release 60 mg PO DAILY Qty: 90 2RF Trulicity 1.5 mg/0.5 mL pen injector 1.5 mg SQ WEEKLY Qty: 2 5RF Patient Comments: TAKES MONDAYS Rx Instructions: MONDAYS rosuvastatin [Crestor] 5 mg tablet 5 mg PO QPM Qty: 90 3RF albuterol sulfate [Ventolin HFA] 90 mcg/actuation HFA aerosol inhaler 2 puff INH QID PRN (Reason: shortness of breath or wheezing) Qty: 18 5RF metformin 500 mg tablet extended release 24 hr 500 mg PO BID Qty: 360 3RF pantoprazole [Protonix] 40 mg tablet,delayed release (DR/EC) 40 mg PO QAM Qty: 90 3RF celecoxib [Celebrex] 100 mg capsule 100 mg PO BID Qty: 180 1RF acetaminophen 650 mg tablet extended release 650 mg PO BID PRN (Reason: Pain) cyanocobalamin (vitamin B-12) 1,000 mcg tablet, sublingual 1,000 mcg SL QAM lysine 1,000 mg tablet 1,000 mg PO QAM zinc gluconate 50 mg tablet 50 mg PO QAM diphenhydramine HCl [Benadryl Allergy] 25 mg tablet 25 mg PO DAILY PRN (Reason: Itching) Ultra CoQ10 75 mg capsule 75 mg PO QAM Linzess 290 mcg capsule 290 mcg PO QAM Qty: 90 3RF nitroglycerin 0.4 mg tablet, sublingual 0.4 mg SL Q5M PRN (Reason: chest pain) Qty: 25 3RF betamethasone dipropionate 0.05 % ointment 1 applic topical BID PRN (Reason: itching) Qty: 45 1RF Rx Instructions: Apply to the affected areas twice a day for up to 2 weeks as needed for itching. can also use every other night if needed. metoprolol tartrate 25 mg tablet 25 mg PO DAILY Qty: 90 3RF aspirin 81 mg Tablet,Delayed Release (Dr/Ec) 81 mg PO HS Flintstones Complete Tablet,Chewable 1 tab PO BID mupirocin [Centany] 2 % ointment 1 applic TOP BID PRN (Reason: DRYNESS) Rx Instructions: apply a small amount to the inside rim of each nostril 1-2x daily PRN dryness polyethylene glycol 3350 [Miralax] 17 gram/dose Powder 17 g PO DAILY PRN (Reason: Constipation) calcium carbonate 600 mg calcium (1,500 mg) Tablet 600 mg PO DAILY duloxetine 30 mg capsule,delayed release(DR/EC) 30 mg PO QAM duloxetine 60 mg capsule,delayed release(DR/EC) 60 mg PO QAM Rx Instructions: TDD 90mg hydrochlorothiazide 12.5 mg tablet 12.5 mg PO QAM magnesium 250 mg Tablet 250 mg PO DAILY Admission Data Admit Date/Time: 09/28/24 19:46 Attending Provider: Lul Sapp Admit Provider: Lul Sapp Primary Care Provider: Markel Rodrigues Other Providers: Tim Cornejo; Andres Lopez; Gerardo Navarrete; [facility]; [facility] Hospital Stay Data Consultations 09/28/24 18:14 ED Decision to Admit Stat 09/29/24 11:37 Consult Vascular Surgery Routine 09/29/24 12:59 Consult Neurology Routine Diagnostic Imagining Performed 09/28/24 15:42 CT head/brain wo con Stat 09/28/24 17:05 CT abd pelvis wo con Stat 09/28/24 19:37 MR angio head wo con Routine MR angio neck wo con Routine MR brain wo con Routine 09/29/24 06:24 US carotid doppler BI Urgent 09/30/24 07:00 CTA neck with con [CT angio neck with con] Stat 10/01/24 13:00 CT head/brain wo con Stat Coding Diagnoses Stenosis of left internal carotid artery I65.22 Recurrent falls R29.6 Acute blood loss anemia D62 Hematoma of parietal scalp S00.03XA Scalp laceration S01.01XA Encounter type: initial encounter Coronary artery disease involving [place] coronary artery of [place] heart without angina pectoris I25.10 Coronary Disease-Associated Artery/Lesion type: [place] artery [place] vs. transplanted heart: [place] heart Associated angina: without angina CREST variant of scleroderma M34.1 Diabetes mellitus type 2 with neurological manifestations E11.49 Gastroesophageal reflux disease without esophagitis K21.9 Esophagitis presence: without esophagitis Hypercholesterolemia E78.00 Primary hypertension I10 Hypertension type: primary hypertension Hyponatremia E87.1 History of ITP Z86.2 Acquired asplenia Z90.81 Recurrent UTI N39.0
--- NOTE | 2024-10-01 14:41 | Communication Note ---
Date of Service: October 01, 2024 Saw patient late this morning on rounds. She c/o mild frontal headache. No neck pain. No posterior/occipital pain. Her headache started in the middle of the night; received tylenol x 1 at that time, and 1 dose of norco by me this morning. She reported no new neuro symptoms - no numbness of any limb, no focal motor weakness, no dizziness with standing/walking today, no presyncope, no dysphagia. Ate a decent breakfast. Exam: gen - NAD, lying comfortably in bed, awake/alert scalp - old laceration occipital region, no bleeding from this site eyes - PERRL neck - no JVD heart - RRR, s1 s2, no murmur lungs - CTA b/l abd - soft NT ND BS+ ext - no edema, pulses 2+ b/l neuro - no facial droop; speech fluent/clear; strength 5/5 x 4 extremities psych - a/o x 3 Although her headache was mild I recommended urgent head CT to r/o ICH in light of recently started anticoagulation (heparin drip x 24 hours which was stopped this am; Eliquis x 1 dose after d/c of heparin drip). Head CT was done within a very short period of time and demonstrated a large left-sided posterior SDH. After confirmation of the acute SDH I contacted our transfer center to initiate emergent transfer to [facility]. I also informed Dr Peterson from our ICU in the event her transfer was delayed. Radiology images sent via PACS to [facility]. I also contacted our anticoagulation specialist to determine if PCC should be given for the 1 dose of Eliquis. PCC was advised. I first spoke with Dr Duane Martines, neurology and triage officer at [facility]. He, too, advised administration of PCC. PCC ordered and given by nursing staff. I subsequently spoke with Dr Clemente from the [facility] trauma service, followed by Dr Gibran Martínez - ER attending. Plan will be for Mrs Mccloud to go by helicopter to [facility] ER for emergent eval. In addition to PCC, 500mg of IV keppra x 1 was given as recommended by the physicians at [facility]. Mrs Mccloud was kept abreast of all events & plan of care. Mrs Mccloud's daughter, Usha Dunne, as well as Ms Dunne's spouse, were at bedside and were extensively updated with the events of today and the plan for transfer to [facility] emergently. All questions answered. Lul Sapp MD
[2024-10-01 14:55] VITALS: BP 111/69
[2024-10-01 15:39] VITALS: PULSE 77
== END 2024-10-01 15:59 | disposition short-term general hospital (02) | DRG 67 ==
LOC: ED 14:30 → 2S 19:46